=== PATIENT | female | born 1945 | race Caucasian/White ===

== ENCOUNTER → 2017-05-16 | Outpatient (CLI) | payer OTHER, MEDICARE ==
[~2017-05-16] MED LIST: ACTOS 30 MG TAB30 MG PO; ALLEGRA-D 12 H1 EAC1 PO; ALPRAZOLAM 0.50.5 M1 PO; ALPRAZOLAM1 M1 PO; AMBIEN 10 MG TA10 MG PO; ASPIRIN EC81 M1 PO; CHROMIUM PICO400 MCG PO; CO Q-10 100 MG1 EACH PO; CORAL CALCIUM1 EAC2; CRESTOR10 MG PO; FLEXERIL PO; FOLIC ACID 40400 MCG PO; FOLIC ACID0.8 MG PO; HYDROCODON-ACE1 EAC8 PO; LISINOPRIL-HCT1 EAC2 PO; MULTIVITAMINS; OMEGA-3 FISH O1 EAC3 PO; PERCOCET PO; PRAVACHOL40 MG PO; PROBIOTIC1 EAC6 PO; SIMVASTATIN40 MG PO; SINGULAIR 10 MG10 M1 PO; [UNRECOGNIZED DRUG - MIXTURE] TOP
== END ==
LOC: RAD 11:18
DX: M47.896 Other spondylosis, lumbar region (principal); M41.86 Other forms of scoliosis, lumbar region

== ENCOUNTER → 2017-07-28 | Outpatient (CLI) | payer OTHER, MEDICARE ==
[~2017-07-28] VITALS: Ht 160 cm; Wt 114.3 kg
[~2017-07-28] MED LIST changes: +ALENDRONATE SOD70 MG PO; +CHROMIUM400 MCG PO; +CO Q-10100 MG PO; +MAGOX 400400 MG PO; +OXYCODONE-ACET1 EACH PO; +VITAMIN D3400 UNIT PO; +VITAMINC500 PO; +WELLBUTRIN XL300 MG PO
--- NOTE | ~2017-07-28 | HPC ---
[facility] [place] [place] [address] PAIN MANAGEMENT CONSULTATION Name: JERRY PRITCHETT [id number] Admission: 07/28/17 Attend Phys: Indio Zavala MD Discharge: Date of : 49 Report #: [id number] THIS REPORT FOR: //name// CC: Indio Mandel MD DATE OF SERVICE: 07/28/2017 DATE OF REGISTRATION: 07/28/2017 Followup visit for chronic back pain with radiculopathy. I last saw the patient on 12/12/2015 when she received an epidural injection for lumbar radiculopathy. She was better after that injection, but when the pain returned, she was under the understanding she could have no more epidural injections. She discussed this with Dr. Mandel who referred her to Dr. Hough. She said Dr. Hough spent about 8 minutes with her, she was unhappy with the visit. He sent his nurses in to prepare her for spinal cord stimulator. She decided that that was not something she wanted to do. She did go ahead with her psych evaluation, but is here today to see if I can help her once again. Her pain is mostly low back today. She has some mild radiation into the hips that could be in part radicular but it is not severe. She has a chronic scoliosis. She scores her pain as a 5-9/10 depending on her activities, usually worsened by standing and walking, relieved by sitting and lying down. She sleeps on her left side. Recently, she has had a flare up and has not seen much improvement over the course of the last several weeks. MEDICATIONS: Chromium, magnesium, cholecalciferol, ascorbic acid, CoQ10, bupropion, rosuvastatin, alendronate, cyclobenzaprine, montelukast, acidophilus, zolpidem, alprazolam, aspirin, omega 3, multivitamins, and lisinopril. She once took oxycodone and found it to be helpful, but she does not take it on a regular basis. ALLERGIES: None. PQRS MEASURES: She does have osteoarthritis, complaining of pain in several joints including hips and knees. Her BMI is elevated at 44.7. We discussed obesity measures and dieting. I have reviewed all current medications with her and discussed pain medications, particularly her previous use of opioids. Her pain was assessed by our pain score. She is not currently a fall risk, although she does use a walker. She denies uses of tobacco or alcohol. She follows with Dr. Mandel for cardiovascular issues, but is not currently under treatment for hypertension. [address] [address] PAIN MANAGEMENT CONSULTATION Name: SHREYASJERRY ANNALEE Room #: REG DANICA Lemus#: [id number] Admission: 07/28/17 Attend Phys: Indio Zavala MD Discharge: Date of : 47 Report #: [id number] PHYSICAL EXAMINATION: Now, her blood pressure 151/53, heart rate 115, respirations 20, BMI is 44.7. She has pain across her low back and a marked leftward rotational curvature with the apex appearing to be in the lumbar thoracic region. There is tenderness along the spine, particularly along the paravertebral lumbosacral spine. Although the pain radiates into the hips, she does not have classic radiculopathy. IMAGING DATA: MRI reviewed shows multiple changes throughout the lumbar spine. She has spondylosis with significant findings at L3-L4 where there is a grade 1 spondylolisthesis related to advanced facet arthrosis. There is severe bilateral neural foraminal stenosis, right greater than left. Rotational scoliosis is noted. IMPRESSION: Chronic intractable low back pain with history of radiculopathy. She has kyphoscoliosis with rotation and spondylitic changes throughout. RECOMMENDATIONS: 1. We have talked about the importance of remaining active. This is a challenge with the patient's current pain levels. Physical therapy may be of benefit, but at first a simple walking program was discussed. 2. Medication management might be an option for her. The current restrictions on stronger pain medications are noted and discussed with the patient. She might benefit from having a small amount of opioid medication on hand for severe events and also to help with activities such as shopping. She has used oxycodone before in the past and I have agreed to provide that for her. 3. A lumbar epidural injection provided relief for these symptoms in the past. I would agree to provide this for her only on the bases since it provides meaningful relief for a decent duration of action. She is here today hoping that we can provide another injection. PROCEDURE: Lumbar epidural injection L3-L4 under fluoroscopic guidance. She was taken to fluoroscopic suite, placed prone, skin prepped with ChloraPrep. Skin anesthetized over the L3-L4 space. A 20-gauge Tuohy epidural needle advanced in first attempt to the epidural space using loss of resistance. No blood or CSF was aspirated. 1 mL of Omnipaque was injected. Good epidurogram achieved seen cephalad and caudad spread. I then followed this with 3 mL of 1% lidocaine mixed with 40 mg of triamcinolone. I reduced the steroid by 50% due to her history of osteoporosis. She tolerated the procedure well. Pain was reduced markedly in recovery room and she was discharged with a prescription for oxycodone 5/325, #30 for severe pain. [facility] [address] [place] [address] PAIN MANAGEMENT CONSULTATION Name: JERRY PRITCHETT [facility]#: [id number] Admission: 07/28/17 Attend Phys: Indio Zavala MD Discharge: Date of : 47 Report #: [id number] Total time spent with the patient today was about 45 minutes. Followup is needed in the future for further injections. By: [id number] Indio Zavala MD /nt
[2017-07-28 12:21] VITALS: BP 151/53
== END | disposition home or self-care (01) ==
LOC: PAIN 06:48
DX: M54.16 Radiculopathy, lumbar region (principal); M41.86 Other forms of scoliosis, lumbar region; G89.29 Other chronic pain; F17.210 Nicotine dependence, cigarettes, uncomplicated; Z98.890 Other specified postprocedural states; Z79.82 Long term (current) use of aspirin; Z79.899 Other long term (current) drug therapy; Z88.8 Allergy status to other drugs, medicaments and biological substances

== ENCOUNTER → 2017-08-12 | Outpatient (CLI) | payer OTHER, MEDICARE | LOC: ULTRA 09:39 | DX: D25.9 Leiomyoma of uterus, unspecified (principal); N95.0 Postmenopausal bleeding; I12.9 Hypertensive chronic kidney disease with stage 1 through stage 4 chronic kidney disease, or unspecified chronic kidney disease; E11.22 Type 2 diabetes mellitus with diabetic chronic kidney disease; N18.2 Chronic kidney disease, stage 2 (mild) ==

== ENCOUNTER → 2018-01-02 | Outpatient (CLI) | payer OTHER, MEDICARE ==
[~2018-01-02] VITALS: Ht 160 cm; Wt 108.4 kg
--- NOTE | ~2018-01-02 | HPC ---
[facility] [place] [address] PAIN MANAGEMENT CONSULTATION Name: JERRY PRITCHETT Room #: REG [facility].#: [id number] Admission: 01/02/18 Attend Phys: Indio Zavala MD Discharge: Date of : 47 Report #: [id number] THIS REPORT FOR: //name// CC: Indio Mandel MD DATE OF SERVICE: 01/02/2018 DATE OF REGISTRATION: 01/02/2018 Followup visit for low back pain with rotational scoliosis. The patient returns to pain clinic today for followup. She would like an epidural injection and has responded nicely to these injections performed intermittently. Last injection, I performed for her was on 07/28/2017. Pain is now returning. She reports that pain is worse with standing and weightbearing. In addition to radicular pain, which is up in the low back and into the hips, she has axial back pain which is likely spondylitic and muscular. Her limited activity contributes to this. She has done some physical therapy and it was recommended by that she use a supportive brace. By description, she has discussed with him an [place] 631 type brace. This is an excellent lumbosacral support brace that can be fitted to her obese abdomen. Today, she reports pain is an 8/10 standing with walking. Pain occasionally radiates into the legs as well following the dermatomal distribution along the L4-L5. She also has some L3-L4 symptoms. MEDICATIONS: Reviewed and reconciled. She is on no blood thinners. She only very occasionally uses oxycodone 5/325. She was provided with 30 tablets in July and has asked for no further treatment medications. She uses cyclobenzaprine as well daily. No anti-inflammatories are currently utilized. ALLERGIES: Noted to be related to the nonsteroidal medications, which are actually contraindicated due to potential kidney issues with proteinuria. SOCIAL HISTORY: She is tearful today and counseled about the passing of her 1 year ago. They were for over 50 years. She has been limiting her activity since. She continues to smoke half pack a day. She uses alcohol occasionally. She has 2 sons that help with support. She lives in the same home she had with her and is unable to go down in the basement to do laundry where her washing machine is. She has been driving to the [employer]. PHYSICAL EXAMINATION: She is morbidly obese with a BMI noted at 42. She moves from sitting to standing position, walks with antalgic features. She has limited range of motion of the lumbar spine. Blood pressure is 106/62, heart [facility] [address] [place] [address] PAIN MANAGEMENT CONSULTATION Name: JERRY PRITCHETT Room #: REG DANICA Nunez.Lizzy.#: [id number] Admission: 01/02/18 Attend Phys: Indio Zavala MD Discharge: Date of : 47 Report #: [id number] rate 109, respirations 14. Straight leg raising is positive. She has pain with lateral tilt, side to side movements, rotational movements and also forward flexion and extension. Straight leg raising reproduces pain into the hips and also across the low back. IMPRESSION: 1. Chronic low back pain with radiculopathy related to degenerative conditions with scoliosis and spondylitic changes. 2. Management of high risk medication. 3. Situational depression still grieving the passing of her . 4. Morbid obesity. PLAN: 1. Continue physical therapy. 2. I have ordered an [place] 631 brace for her. We will see if we can get that approved by Medicare. 3. Epidural steroid injection under fluoroscopic guidance. DESCRIPTION OF PROCEDURE: She was taken to fluoroscopic suite, placed prone, skin prepped with ChloraPrep over L3-L4. A 20-gauge Tuohy epidural needle advanced first attempt in the epidural space with loss of resistance technique. There was no blood or CSF aspirated. 1 mL of Omnipaque injected. Good spread of dye observed in the epidural space followed by 3 mL of 0.5% lidocaine mixed with 80 mg of triamcinolone. She tolerated the procedure well and was observed for 45 minutes and discharged. Followup visit planned in the pain clinic on an as needed basis for further injections or for medication management in a few months. By: 1400 07 Indio Zavala MD /nt
[2018-01-02 13:14] VITALS: BP 106/62
== END | disposition home or self-care (01) ==
LOC: PAIN 06:56
DX: M41.86 Other forms of scoliosis, lumbar region (principal); G89.29 Other chronic pain; M47.26 Other spondylosis with radiculopathy, lumbar region; E66.01 Morbid (severe) obesity due to excess calories; F32.89 Other specified depressive episodes; Z79.891 Long term (current) use of opiate analgesic; Z68.41 Body mass index [BMI] 40.0-44.9, adult; Z98.890 Other specified postprocedural states; F17.210 Nicotine dependence, cigarettes, uncomplicated; Z88.8 Allergy status to other drugs, medicaments and biological substances; Z79.82 Long term (current) use of aspirin; Z79.899 Other long term (current) drug therapy

== ENCOUNTER → 2018-05-10 | Outpatient (CLI) | payer OTHER, MEDICARE ==
[~2018-05-10] VITALS: Ht 160 cm; Wt 106.5 kg
--- NOTE | ~2018-05-10 | HPC ---
[facility] [place] [address] [place] [address] PAIN MANAGEMENT CONSULTATION Name: JERRY PRITCHETT Room #: REG [facility] MJuan.#: [id number] Admission: 05/10/18 Attend Phys: Indio Zavala MD Discharge: Date of : 47 Report #: [id number] THIS REPORT FOR: //name// CC: Ramiro Mandel MD DATE OF SERVICE: 05/10/2018 Followup visit for chronic low back pain with rotational scoliosis. The patient was last seen in the pain clinic 4 months ago at which time she received an epidural injection. She has always responded reasonably well to epidural injections. This will be her third appointment for an injection in the last 9 months. She reports that pain relief is noted fairly soon after the injection and persists for several months. Other options including a brace, surgeries and medications have been reviewed. She would like to avoid surgery and is not interested in taking opioid medications. Today, she is not nearly as motionless as she was at her last visit. Her 1-1/2 years ago, and she has been limited. She continues to smoke 1/2 pack of cigarettes a day and drink alcohol on a social basis occasionally. PQRS review demonstrates a pleasant female, morbidly obese with a BMI of 41.6. She is on no blood thinners and is not under treatment for hypertension. She does not take opioid medications and is not on an agreement. She is not a fall risk at this time and has not fallen in the last 3 months. Her pain intensity is an 8/10. She smokes 1/2 pack a day and she was counseled today for 5 minutes. Importance of smoking cessation was reviewed. She drinks alcohol occasionally in social setting. Examination of the spine reveals obesity and tenderness across the lumbosacral segment with mild rotational component. Straight leg raise bilaterally produces discomfort into the legs, right worse than left. IMPRESSION: 1. Chronic low back pain with radiculopathy. 2. Morbid obesity. 3. Scoliosis. PROCEDURE: Epidural steroid injection under fluoroscopic guidance. DESCRIPTION OF PROCEDURE: She was taken to fluoroscopic suite where she was placed in prone position. Skin was prepped with ChloraPrep. Skin was anesthetized over L4-L5 interspace. A 20-gauge Tuohy epidural needle advanced [address] [address] PAIN MANAGEMENT CONSULTATION Name: SHREYASJERRY MANTILLA Room #: REG [facility].#: [id number] Admission: 05/10/18 Attend Phys: Indio Zavala MD Discharge: Date of : 47 Report #: [id number] in the epidural space with loss of resistance technique. There was no blood, no CSF aspirated. 1 mL of Omnipaque was injected. Good spread of dye observed in the epidural space followed by 3 mL of 1% lidocaine mixed with 80 mg of triamcinolone. He tolerated the procedure well, was observed for 45 minutes and discharged. Follow up as needed. By: 1749 [id number] Indio Zavala MD /linda
[2018-05-10 13:41] VITALS: BP 129/71
== END | disposition home or self-care (01) ==
LOC: PAIN 06:55
DX: M54.16 Radiculopathy, lumbar region (principal); G89.29 Other chronic pain; M41.9 Scoliosis, unspecified; E66.01 Morbid (severe) obesity due to excess calories; F17.210 Nicotine dependence, cigarettes, uncomplicated; I10 Essential (primary) hypertension; Z68.41 Body mass index [BMI] 40.0-44.9, adult; Z79.899 Other long term (current) drug therapy; Z88.8 Allergy status to other drugs, medicaments and biological substances; Z79.82 Long term (current) use of aspirin

== ENCOUNTER 2018-06-23 12:58 | Emergency (ER) | payer OTHER, MEDICARE ==
[~2018-06-23] VITALS: Ht 160 cm; Wt 106.1 kg
--- NOTE | ~2018-06-23 | EKG ---
[place] [address] [employer] [facility] [place] [address] ELECTROCARDIOGRAM REPORT Name: SHREYASJERRY ANNALEE Room #: [facility] [id number] Admission: 06/23/18 Attend Phys: Discharge: 06/23/18 Date of : 47 Report #: [id number] THIS REPORT FOR: //name// [facility] ED Test Date: 2018-06-23 Test Time: 13:32:07 Pat Name: JERRY PRITCHETT Department: Room: Gender: F Supervisor [employer]: KF : 1945 Requested By: Iron Walker Order Number: [id number] MD: Ameya Heaton Measurements Intervals [place] Rate: 116 P: 68 OR: 173 QRS: -31 QRSD: 89 T: 74 QT: 319 QTc: 444 Interpretive Statements Sinus tachycardia Left axis deviation Low voltage, precordial leads Abnormal R-wave progression consider v2v3 reversal Baseline wander in lead(s) III Compared to ECG 05/16/2014 09:32:15 no significant changes Electronically Signed On 06-25-2018 22:41:28 [employer] by Ameya Heaton [email or web address] <ELECTRONICALLY SIGNED> By: Ameya Heaton MD 06/25/18 2241 1332 1332 Ameya Heaton MD /EPI
[2018-06-23] MEDS ORDERED: PHOSLO667 MG PO (13:51)
[2018-06-23 13:54] LABS: ABSOLUTE NEUTROPHILS 5.5 thou/uL (1.4-8.2); BASOPHILS 1.1 % (0.0-2.0); EOSINOPHILS 2.4 % (0.0-3.0); HEMATOCRIT 37.5 % (37.0-47.0); HEMOGLOBIN 12.7 gm/dL (12.0-15.0); LYMPHOCYTES 19.7 % (24.0-44.0); MCHC 33.8 g/dL (28.0-37.0); MCV 94.7 fL (80.0-100.0); MONOCYTES 9.2 % (1.0-8.0); PLATELET COUNT 392 thou/uL (150-400); POLYS 67.6 % (36.0-66.0); RBC 3.96 mil/uL (4.20-5.00); RDW 13.6 % (10.5-14.5); WBC 8.1 thou/uL (4.0-11.0)
[2018-06-23 14:05] LABS: ANION GAP 11 mmol/L (7-16); BUN 25 mg/dL (7-18); CALCIUM 9.6 mg/dL (8.5-10.1); CHLORIDE 104 mmol/L (98-107); CO2 29 mmol/L (21-32); CREATININE 1.6 mg/dL (0.6-1.0); GLUCOSE 167 mg/dL (74-106); POTASSIUM 4.1 mmol/L (3.5-5.1); SODIUM 144 mmol/L (136-145)
[2018-06-23 14:14] LABS: TROPONIN-I <0.06 ng/mL (<0.06)
[2018-06-23] MEDS ORDERED: XARELTO10 MG PO (15:44)
[2018-06-23 16:07] VITALS: BP 152/58
== END 2018-06-23 16:07 | disposition home or self-care (01) ==
LOC: ER 12:58
PROVIDERS: Physician Assistant
DX: I82.812 Embolism and thrombosis of superficial veins of left lower extremity (principal); I10 Essential (primary) hypertension; E11.9 Type 2 diabetes mellitus without complications; Z88.6 Allergy status to analgesic agent

== ENCOUNTER → 2018-10-23 | Outpatient (CLI) | payer OTHER, MEDICARE ==
[~2018-10-23] VITALS: Ht 160 cm; Wt 112.8 kg
[~2018-10-23] MED LIST changes: +ELIQUIS5 MG PO; +PHOSLO667 MG PO; +XARELTO10 MG PO
[2018-10-23 10:41] VITALS: BP 145/62
--- NOTE | 2018-10-23 11:04 | NUR ---
Pain Clinic Assessment: 1. History of Osteoarthritis: History of Rheumatoid Arthritis: 2. Height: 5 ft. 3 in. 160.0 cm. Weight: 248.6 lb. oz. 112.764 kg. Patient's BMI: 44.0 3. Vital Signs: BP: 145/62 Pulse: 90 Resp: 18 Temp: 02 Sat: 95 ECG Mon: 4. Pain Intensity: 7 5. Fall Risk: Dizziness: N Needs help standing or walking: Y Fallen in the last 3 months: N Fall risk comments: 6. Patient on Blood Thinner: LILLIAN 7. History of Hypertension: N 8. Opioid Therapy greater than 6 weeks: Y Opiate Contract Signed: 10/23/18 9. Risk Assessment Tool Provided: LOW RISK 08/03 10. Functional Assessment Tool: 11. Recreational Drug Use: Never Drug Type: Tobacco Use: Former Smoker Tobacco Type: Amount or Packs/day: How Many Years: Alcohol Use: Yes Frequency: Quant:
--- NOTE | 2018-10-24 07:47 | HPC ---
[facility] [address] [place] [address] PAIN MANAGEMENT CONSULTATION Name: JERRY PRITCHETT [facility]: [facility] [id number] Admission: 10/23/18 ������������������ Attend Phys: Wendy Whitman Discharge: ������������������ Date of : 47 Report #: [id number] THIS REPORT FOR: //name// CC: Wendy Mandel MD DATE OF SERVICE: 10/23/2018 CHIEF COMPLAINT: Chronic low back pain with rotational scoliosis. HISTORY OF PRESENT ILLNESS: This is a followup visit for the patient today who is a very pleasant 73-year-old female who returns requesting a refill of her oxycodone. She tells me that since we saw her last May, she has had a plastic surgery to remove some extra skin from her weight loss of 80 pounds around her abdomen area. She tells me she continued to get several yeast infections due to all this extra skin that was there. She had that removed in June. About a week after the surgery, she developed swelling in her bilateral legs and was found to have 3 superficial blood clots. She was started on Eliquis and has been on that medication since. She tells me she is unable to have any epidurals, why she is on her blood thinners and the last one that she had in May helped her for about 4 months and at least 75%. So, she is requesting some oxycodone to take on as needed basis until she is able to get another injection once she is off her blood thinners. The patient tells me her pain score is a 7/10. Most of her pain is in her lower back area, worse with standing and walking, that medication and rest do help her relieve some of her pain. ALLERGIES: IBUPROFEN. CURRENT LIST OF MEDICATIONS: Oxycodone 5/325 p.r.n., Eliquis 5 mg b.i.d., calcium acetate 667 mg daily, magnesium oxide 400 mg daily, vitamin D3 400 mg daily, ascorbic acid daily, CoQ10 daily, bupropion 300 mg daily, Crestor 10 mg daily, Fosamax 70 mg weekly, Singulair 10 mg daily, probiotic once daily, alprazolam 1 mg 2-3 times a day as needed, multivitamin daily, and lisinopril/hydrochlorothiazide once daily. PQRS: 1. She is not being treated for osteoarthritis or rheumatoid arthritis. 2. Height is 5 feet 3 inches, weight is 248, BMI is 44. 3. Vital signs: Blood pressure 145/62, pulse is 90, respirations 18, oxygen sat is 95%. 4. Pain score 7/10. 5. Fall risk. Denies dizziness. Does use a walker for walking and standing and has not fallen in the last 3 months. 6. The patient is on Eliquis and does take [place] [address] PAIN MANAGEMENT CONSULTATION Name: JERRY PRITCHETT Room #: REG DANICA Lemus#: [id number] Admission: 10/23/18 ������������������ Attend Phys: Wendy Whitman Discharge: ������������������ Date of : 47 Report #: [id number] 7. Opioid therapy is greater than 6 weeks. Therefore, an opiate signed contract has not signed since she takes it very p.r.n. Risk assessment tool is low. Her functional assessment is 39/70. 8. Recreational drug use, she denies. She is a former smoker and occasionally drinks alcohol. We checked the prescription monitoring system. The patient is filling her alprazolam from Dr. Mandel and last narcotic filled from us was in December. The patient tells me she does safeguard her medications. PHYSICAL EXAMINATION: GENERAL: This is a morbidly obese, alert and orientated 73-year-old female, who appears her stated age, who is a good historian. HEENT: Normocephalic, atraumatic. Extraocular eye muscles are intact. Mucous membranes are moist. MUSCULOSKELETAL: She moves from sitting to standing position, walks with antalgic features. She does have limited range of motion in her lumbar spine. She does have scoliosis, complains of low back pain that radiates into her bilateral hips. IMPRESSION: 1. Chronic low back pain with radiculopathy related to her degenerative conditions with scoliosis. 2. Management of high risk medications. 3. Situational depression, still grieving from the passing of her . 4. Morbid obesity. 5. History of blood clots, on anticoagulation therapy. We reviewed the fact that opiate medications are being used to provide analgesia adequate to support activities of daily living, not attempting to achieve a specific pain score on the 0-10 Visual Analog Scale. The current opiate medications are providing sufficient analgesia to allow the patient to participate in activities of daily living. The patient is not exhibiting any aberrant behavior suggestive of drug diversion. The patient is not having any adverse reactions to medications. The patient is not suffering from daytime somnolence or mental acuity changes. The patient is managing opiate-induced constipation with appropriate [id number] agents and dietary considerations. The patient was counseled on concern for caution with operating a motor vehicle while using opiate medications. A physical exam was performed and the patient's functional status was evaluated. All patients with back pain were advised against the bed rest greater than 4 days and were advised to return to normal activities. Pain score assessment was noted and the treatment plan was reviewed with the patient. All current medications, both prescribed and OTC were reviewed and reconciled on the electronic medical record. Tobacco screening was accomplished and smoking cessation was advised when indicated. BMI was noted and diet/exercise modification was recommended for all patients following outside normal [facility] [address] [place] [address] PAIN MANAGEMENT CONSULTATION Name: SHREYASJERRY ANNALEE Room #: REG DANICA Lemus#: [id number] Admission: 10/23/18 ������������������ Attend Phys: Wendy Whitman Discharge: ������������������ Date of : 49 Report #: [id number] parameters. I reviewed with the patient today their responsibilities to safeguard prescription medications, reviewed their responsibility to utilize medications only as prescribed by the physician. They are to seek and receive pain medications only from 1 physician group ( [facility]). They are to use 1 pharmacy and keep the clinic informed if they change pharmacies. Their responsibilities include making followup visits in a timely fashion and to avoid abrupt discontinuation of medication usage. Their responsibilities further include bringing their medications (bottles from the pharmacy with residual pills) to the visit for possible confirmation of pill counts and the patient understands it is their responsibility to submit to random drug screens to ensure both that the medications prescribed are present, and that no other controlled substances are present. All prescriptions provided today were generated electronically. PLAN: 1. We discussed treatment options with the patient today. The patient tells me that since she has developed blood clots in her lower extremities and are currently on a blood thinner, she is unable to have any epidurals which she has found very beneficial in the past giving her at least 75% relief for greater than 4 months, so she is requesting a refill of her oxycodone. Script given today for her oxycodone 5/325, #30. The patient was instructed to use this sparingly and to not take the same medication at the same time as her alprazolam. The patient verbalizes that she will take them at separate times. She feels that most days, she does fine without taking the oxycodone, but since she is unable to have an epidural that she feels that that will help her get through the day when her pain is worse across her lower back. 2. Dr. Zavala did come and visit with the patient. He tells her that she will gladly give her an epidural once Dr. Mandel says that she is able to go off her blood thinners at least even short time for 3-5 days, so she could have another epidural. 3. The patient will call for an appointment as needed. Dr. Zavala collaborated care and saw the patient. ��������������������������������������������� <ELECTRONICALLY SIGNED> ���������������������������������������� By: Wendy Whitman ��������������������������������������������� 10/24/18 0747 1409 Wendy Whitman /linda
== END ==
LOC: PAIN 06:56
DX: M54.16 Radiculopathy, lumbar region (principal); M41.86 Other forms of scoliosis, lumbar region; E66.01 Morbid (severe) obesity due to excess calories; F43.21 Adjustment disorder with depressed mood; Z79.899 Other long term (current) drug therapy; Z79.01 Long term (current) use of anticoagulants; Z86.718 Personal history of other venous thrombosis and embolism; Z68.41 Body mass index [BMI] 40.0-44.9, adult

== ENCOUNTER → 2019-01-18 | Outpatient (CLI) | payer OTHER, MEDICARE ==
[~2019-01-18] VITALS: Ht 160 cm; Wt 107.2 kg
[2019-01-18 13:02] VITALS: BP 138/68
--- NOTE | 2019-01-18 13:27 | NUR ---
Pain Clinic Assessment: 1. History of Osteoarthritis: History of Rheumatoid Arthritis: 2. Height: 5 ft. 3 in. 160.0 cm. Weight: 236.4 lb. oz. 107.231 kg. Patient's BMI: 41.9 3. Vital Signs: BP: 138/68 Pulse: 110 Resp: 22 Temp: 02 Sat: 95 ECG Mon: 4. Pain Intensity: 9 5. Fall Risk: Dizziness: Y Needs help standing or walking: Y Fallen in the last 3 months: N Fall risk comments: 6. Patient on Blood Thinner: None 7. History of Hypertension: N 8. Opioid Therapy greater than 6 weeks: Y Opiate Contract Signed: 10/23/18 9. Risk Assessment Tool Provided: LOW RISK 08/03 10. Functional Assessment Tool: 11. Recreational Drug Use: Never Drug Type: Tobacco Use: Former Smoker Tobacco Type: Amount or Packs/day: How Many Years: Alcohol Use: Yes Frequency: Quant:
--- NOTE | 2019-01-30 17:25 | HPC ---
[facility] [place] [address] PAIN MANAGEMENT CONSULTATION Name: JERRY PRITCHETT Room #: REG DANICA Flores.#: [id number] Admission: 01/18/19 ������������������ Attend Phys: Indio Zavala MD Discharge: ������������������ Date of : 49 Report #: [id number] THIS REPORT FOR: //name// CC: Indio Mandel MD DATE OF SERVICE: 01/18/2019 Followup visit for chronic low back pain with radiculopathy. The patient returns to the pain clinic today in tears. Her second recently . He suddenly in the kitchen. This is the same way her 2 years ago. She was in the clinic today for about an hour. She was given some counseling by my nurse Sona Osorio and I also consoled her a bit as she is grieving acutely. He less than 3 weeks ago. She is here today for her epidural injection. These have provided good relief of her lumbar radicular symptoms. Pain is across her low back and radiates more significantly into the right leg. Medications were reviewed and reconciled. She is on oxycodone 5/325 one tablet q. 12 hours as needed for severe breakthrough pain. I provided these medications for her under terms of a written opioid agreement. We reviewed the [facility] prescription drug monitoring program information. There are no unexpected entries. An opioid agreement has been signed and placed upon the chart. We have completed an opioid risk tool and we feel that she is at low risk for addiction, her score 1 to 3. She denies use of tobacco, does drink alcohol at times in a social setting and was counseled about use of alcohol in the treatment of pain. She feels some unsteadiness on her feet, needs help standing and walking, although she has not fallen in the last three months, I would consider her a fall risk. She is on no blood thinners at this time and she has no history of hypertension. PHYSICAL EXAMINATION: She is 5 feet 3 inches with a BMI of 41.9. Dietary adjustments were reviewed. Blood pressure 138/68, her heart rate 110 and her respirations 22. She has scoliosis of the lumbar spine and tenderness across the lumbosacral segment. Straight leg raising is bilaterally positive, worse on the right. She has abdominal scar from recent plastic surgery procedure for removal of panniculus. IMAGING: X-rays revealed L3-L4 grade 1 spondylolisthesis of 6 mm. There is also thickening of the ligamentum flavum at this level resulting in spinal [address] [address] PAIN MANAGEMENT CONSULTATION Name: JERRY PRITCHETT Room #: REG [facility].#: [id number] Admission: 01/18/19 ������������������ Attend Phys: Indio Zavala MD Discharge: ������������������ Date of : 49 Report #: [id number] stenosis. The leftward convexity scoliosis is present and noted. IMPRESSION: 1. Chronic low back pain with radiculopathy secondary to scoliosis and spinal stenosis. 2. Situational depression. She has lost her second . 3. Morbid obesity. 4. Management of high risk medications under terms of written agreement. PROCEDURE: She was taken to fluoroscopic suite, placed prone, skin prepped with ChloraPrep. Skin anesthetized over the L3-L4 space. A 20-gauge Tuohy epidural needle advanced into the epidural space using loss of resistance technique. There was no blood or CSF aspirated. A 1 mL of Omnipaque injected. Good spread of dye observed into the epidural space followed by 3 mL of 0.5% lidocaine mixed with 80 mg of triamcinolone. She tolerated the procedure well. She was observed for 45 minutes and discharged. Followup visit planned as needed. ��������������������������������������������� <ELECTRONICALLY SIGNED> ���������������������������������������� By: Indio Zavala MD ��������������������������������������������� 01/30/19 1725 [id number] Indio Zavala MD /nt
== END | disposition home or self-care (01) ==
LOC: PAIN 07:00
DX: M54.16 Radiculopathy, lumbar region (principal); G89.29 Other chronic pain; M48.061 Spinal stenosis, lumbar region without neurogenic claudication; F32.89 Other specified depressive episodes; E66.01 Morbid (severe) obesity due to excess calories; M43.16 Spondylolisthesis, lumbar region; M41.86 Other forms of scoliosis, lumbar region; Z68.41 Body mass index [BMI] 40.0-44.9, adult; Z87.891 Personal history of nicotine dependence; Z88.8 Allergy status to other drugs, medicaments and biological substances; Z79.899 Other long term (current) drug therapy

== ENCOUNTER → 2019-04-30 | Outpatient (CLI) | payer OTHER, MEDICARE ==
[~2019-04-30] VITALS: Ht 160 cm; Wt 107.8 kg
[2019-04-30 14:17] VITALS: BP 114/55
--- NOTE | 2019-04-30 14:35 | NUR ---
Pain Clinic Assessment: 1. History of Osteoarthritis: SPINE RIGHT KNEE History of Rheumatoid Arthritis: Not Applicable 2. Height: 5 ft. 3 in. 160.0 cm. Weight: 237.6 lb. oz. 107.775 kg. Patient's BMI: 42.1 3. Vital Signs: BP: 114/55 Pulse: 117 Resp: 14 Temp: 02 Sat: 94 ECG Mon: 4. Pain Intensity: 9-10 5. Fall Risk: Dizziness: Y Needs help standing or walking: Y Fallen in the last 3 months: N Fall risk comments: 6. Patient on Blood Thinner: None 7. History of Hypertension: N 8. Opioid Therapy greater than 6 weeks: Y Opiate Contract Signed: 10/23/18 9. Risk Assessment Tool Provided: LOW RISK 1 10. Functional Assessment Tool: 11. Recreational Drug Use: Never Drug Type: Tobacco Use: Former Smoker Tobacco Type: Amount or Packs/day: How Many Years: Alcohol Use: Yes Frequency: Special Occasions Quant:
--- NOTE | 2019-05-10 16:52 | HPC ---
[facility] [address] [place] [address] PAIN MANAGEMENT CONSULTATION Name: JERRY PRITCHETT Room #: REG DANICA CliffordLizzyJuan#: [id number] Admission: 04/30/19 Attend Phys: Indio Zavala MD Discharge: Date of : 49 Report #: [id number] THIS REPORT FOR: //name// CC: Indio Mandel DATE OF SERVICE: 04/30/2019 Followup visit for chronic intractable low back pain with radiculopathy. The patient returns to the pain clinic today in followup. The last time she was here, she was in tears. She had just lost her fiance who suddenly in the kitchen in front of her. This is the second partner that she has lost within the last 2 years. I must report today that she remains depressed and grieving. She has been very socially isolated, staying in the house most of the time. She does not get out. She goes out about twice a month with her sons who take her to lunch on the weekend and gets to the grocery store, but otherwise seems to be quite lonely. She is seeing as a result of her debility and inactivity increases in the back pain with radiation into her hips and some radiating pain up into her upper back. She describes her pain as a constant throbbing, stabbing sensation, 9/10. Pain is worse with lying down, prolonged standing, prolonged sitting and she frequently repositions in order to get relief. MEDICATIONS: Include oxycodone 5/325 b.i.d. and she is under an opioid agreement. Calcium, magnesium, cholecalciferol, ascorbic acid, CoQ10, Crestor, alendronate, montelukast, alprazolam 1 mg b.i.d., multivitamins, lisinopril/hydrochlorothiazide. She is not on any antidepressant. She previously had taken Wellbutrin. ALLERGIES: IBUPROFEN. PHYSICAL EXAMINATION: She is 5 foot 3 inches, 237 pounds, BMI is 42.1. She has gained a small amount of weight since her last visit. Her affect is depressed. She did not cry today during her visit as she did at her last. She seems to be more pessimistic, however, and discouraged. She ambulates with marked antalgic features. Her chest is clear. Cardiac rhythm is regular. She has tenderness across the lumbosacral segment. Pain radiates into her hips bilaterally with some pain in her right knee, which may either be radicular or arthropathy. She also complains of pain throughout her upper back. This is localized and likely spondylitic. Straight leg raising is mildly positive bilaterally, reproducing pain in the back, hips and legs. Sensation is intact. Generalized weakness of the lower extremities is noted likely due to deconditioning. [facility] [address] [place] [address] PAIN MANAGEMENT CONSULTATION Name: JERRY PRITCHETT [id number] Admission: 04/30/19 Attend Phys: Indio Zavala MD Discharge: Date of : 49 Report #: [id number] IMPRESSION: 1. Low back pain with history of anterolisthesis and radiculopathy. She has marked changes at the L3-L4 level with thickening of the ligamentum flavum resulting in spinal stenosis. There is a leftward scoliosis. 2. Situational depression. 3. Morbid obesity. 4. Management of high risk medications. PLAN: 1. Medications were renewed for intractable pain. 2. Begin Cymbalta 30 mg daily. 3. Physical therapy in part to get her moving, which I think will help with her pain and also to provide her with some social contacts twice a week for the next 6 weeks. 4. Epidural steroid injection, L3-L4 under fluoroscopic guidance. DESCRIPTION OF PROCEDURE: She was taken to the fluoroscopic suite and placed in the prone position. Skin was prepped over the L3-L4 interspace. A 20-gauge Tuohy epidural needle was advanced in the epidural space with loss of resistance technique. There was no blood nor CSF aspirated. A 1 mL of Omnipaque was injected and good spread of dye observed into the epidural space. It was followed by 3 mL of 0.5% lidocaine mixed with 80 mg of triamcinolone. She tolerated the procedure well. She was observed for 45 minutes and discharged. Followup visit planned in 1 month. We will consider additional treatment and I want to check up on her for her depression and response to Cymbalta as well as compliance. <ELECTRONICALLY SIGNED> By: Indio Zavala MD 05/10/19 1652 [id number] Indio Zavala MD /nt
== END | disposition home or self-care (01) ==
LOC: PAIN 06:55
DX: M54.16 Radiculopathy, lumbar region (principal); M48.061 Spinal stenosis, lumbar region without neurogenic claudication; M43.16 Spondylolisthesis, lumbar region; F32.9 Major depressive disorder, single episode, unspecified; E66.01 Morbid (severe) obesity due to excess calories; G89.29 Other chronic pain; Z88.8 Allergy status to other drugs, medicaments and biological substances; Z68.41 Body mass index [BMI] 40.0-44.9, adult; Z79.899 Other long term (current) drug therapy; Z87.891 Personal history of nicotine dependence

== ENCOUNTER → 2019-09-04 | Outpatient (CLI) | payer OTHER, MEDICARE | LOC: HYPER 13:59 | DX: E11.622 Type 2 diabetes mellitus with other skin ulcer (principal); L97.822 Non-pressure chronic ulcer of other part of left lower leg with fat layer exposed; L97.811 Non-pressure chronic ulcer of other part of right lower leg limited to breakdown of skin; L03.115 Cellulitis of right lower limb; L03.116 Cellulitis of left lower limb; E11.65 Type 2 diabetes mellitus with hyperglycemia; E78.5 Hyperlipidemia, unspecified; M54.16 Radiculopathy, lumbar region; G89.29 Other chronic pain; M81.0 Age-related osteoporosis without current pathological fracture; F41.9 Anxiety disorder, unspecified; F32.9 Major depressive disorder, single episode, unspecified; F17.210 Nicotine dependence, cigarettes, uncomplicated; Z79.84 Long term (current) use of oral hypoglycemic drugs ==

== ENCOUNTER → 2019-09-12 | Outpatient (CLI) | payer OTHER, MEDICARE | LOC: HYPER 08:21 | DX: E11.622 Type 2 diabetes mellitus with other skin ulcer (principal); L97.811 Non-pressure chronic ulcer of other part of right lower leg limited to breakdown of skin; L97.822 Non-pressure chronic ulcer of other part of left lower leg with fat layer exposed; L03.116 Cellulitis of left lower limb; L03.115 Cellulitis of right lower limb; E11.65 Type 2 diabetes mellitus with hyperglycemia; E78.5 Hyperlipidemia, unspecified; I10 Essential (primary) hypertension; M81.0 Age-related osteoporosis without current pathological fracture; F17.210 Nicotine dependence, cigarettes, uncomplicated; F41.9 Anxiety disorder, unspecified; F32.9 Major depressive disorder, single episode, unspecified ==

== ENCOUNTER → 2019-09-26 | Outpatient (CLI) | payer OTHER, MEDICARE | LOC: HYPER 12:53 | DX: E11.622 Type 2 diabetes mellitus with other skin ulcer (principal); L97.822 Non-pressure chronic ulcer of other part of left lower leg with fat layer exposed; L97.811 Non-pressure chronic ulcer of other part of right lower leg limited to breakdown of skin; L03.116 Cellulitis of left lower limb; L03.115 Cellulitis of right lower limb; E11.65 Type 2 diabetes mellitus with hyperglycemia; I10 Essential (primary) hypertension; E78.5 Hyperlipidemia, unspecified; M81.0 Age-related osteoporosis without current pathological fracture; F41.9 Anxiety disorder, unspecified; F32.9 Major depressive disorder, single episode, unspecified; F17.210 Nicotine dependence, cigarettes, uncomplicated; Z79.84 Long term (current) use of oral hypoglycemic drugs ==

== ENCOUNTER → 2019-10-10 | Outpatient (CLI) | payer OTHER, MEDICARE | LOC: HYPER 12:54 | DX: E11.622 Type 2 diabetes mellitus with other skin ulcer (principal); L97.822 Non-pressure chronic ulcer of other part of left lower leg with fat layer exposed; L97.811 Non-pressure chronic ulcer of other part of right lower leg limited to breakdown of skin; L03.115 Cellulitis of right lower limb; L03.116 Cellulitis of left lower limb; E11.65 Type 2 diabetes mellitus with hyperglycemia; I10 Essential (primary) hypertension; E78.5 Hyperlipidemia, unspecified; M81.0 Age-related osteoporosis without current pathological fracture; M54.16 Radiculopathy, lumbar region; M54.12 Radiculopathy, cervical region; G89.29 Other chronic pain; F41.9 Anxiety disorder, unspecified; F32.9 Major depressive disorder, single episode, unspecified; F17.210 Nicotine dependence, cigarettes, uncomplicated; Z79.84 Long term (current) use of oral hypoglycemic drugs ==

== ENCOUNTER 2019-10-14 08:09 | Inpatient (IN) | payer OTHER, MEDICARE ==
[~2019-10-14] VITALS: Ht 160 cm; Wt 112.6 kg
[2019-10-14 08:10] VITALS: BP 149/56
[2019-10-14 09:06] LABS: URINE BLOOD 2+ (Negative); URINE CLARITY CLEAR; URINE GLUCOSE-RANDOM* NEGATIVE (Negative); URINE KETONES NEGATIVE (Negative); URINE LEUKOCYTES-REFLEX TRACE (Negative); URINE NITRITE-REFLEX NEGATIVE (Negative); URINE PROTEIN (DIPSTICK) 2+ (Negative); URINE SPECIFIC GRAVITY >= 1.030 (1.005-1.035)
[2019-10-14 09:10] LABS: ICTOTEST (BILI CONFIRMATORY) Negative (Negative); URINE BILIRUBIN NEGATIVE (Negative); URINE COLOR DK YELLOW
[2019-10-14 09:10] LABS: ANION GAP 3 mmol/L (7-16); BUN 24 mg/dL (7-18); CALCIUM 10.2 mg/dL (8.5-10.1); CHLORIDE 97 mmol/L (98-107); CO2 34 mmol/L (21-32); CREATININE 1.4 mg/dL (0.6-1.0); GLUCOSE 145 mg/dL (74-106); POTASSIUM 4.2 mmol/L (3.5-5.1); SODIUM 134 mmol/L (136-145)
[2019-10-14] MEDS ORDERED: PROTONIX40 M2 PO (09:12)
[2019-10-14] MEDS ORDERED: PROAIR HFA8.5 GM INH (09:13)
[2019-10-14] MEDS ORDERED: ALENDRONATE SOD70 MG PO (09:14)
[2019-10-14] MEDS ORDERED: CALCIUM CARBON500 MG PO (09:15)
[2019-10-14 09:16] LABS: HEMATOCRIT 50.1 % (37.0-47.0); HEMOGLOBIN 16.1 gm/dL (12.0-15.0); MCH 30.2 pg (26.0-34.0); MCHC 32.2 g/dL (28.0-37.0); MCV 93.7 fL (80.0-100.0); PLATELET COUNT 156 thou/uL (150-400); RBC 5.34 mil/uL (4.20-5.00); RDW 15.2 % (10.5-14.5); WBC 8.8 thou/uL (4.0-11.0)
[2019-10-14] MEDS ORDERED: MAGNESIUM250 M1 PO (09:16)
[2019-10-14] MEDS ORDERED: SINGULAIR 10 MG10 MG PO (09:16)
[2019-10-14] MEDS ORDERED: CELEXA 20 MG TA20 MG PO (09:18)
[2019-10-14 09:19] LABS: TROPONIN-I <0.06 ng/mL (<0.06)
[2019-10-14] MEDS ORDERED: VITAMIN C1000 MG PO (09:21)
[2019-10-14 09:24] LABS: HYALINE CASTS 0-3 Few /LPF (None Seen); MUCUS >6 Heavy strn/LPF (None Seen); SQUAMOUS >10 Many /LPF (0-3)
[2019-10-14 09:25] LABS: BACTERIA-REFLEX 1-9 Few /HPF (None Seen); CRYSTALS None Seen /LPF (None Seen); URINE RBC 3-10 Few /HPF (0-2); URINE WBC-REFLEX 0-5 Rare /HPF (0-5)
[2019-10-14 10:07] VITALS: BP 129/62
[2019-10-14 10:10] LABS: ATYPICAL LYMPHS 1 %
[2019-10-14 11:54] LABS: BE(vivo) 3.8 mmol/L (-2 to +3); HCO3 30.5 mmol/L (22.0-26.0); PCO2 53.3 mmHg (35.0-45.0); PO2 58.8 mmHg (80.0-100.0); pH 7.375 (7.360-7.450); sO2 89.5 % (92.0-98.0)
[2019-10-14 13:25] VITALS: BP 145/77
[2019-10-14 15:15] VITALS: BP 157/79
--- NOTE | 2019-10-14 18:41 | NUR ---
PT ADMITTED TO FACILTY.ORIENTED TO ROOM AND ENVIRONMENT. SHE IS ALERT ORIENTED X4. DENIES PAIN. ON OXYGEN. STATES SHE HAS HAD COPD FOR MANY YEARS. STATES SHE STILL FEELS WEAK. WILL CONT WITH PLAN OF CARES.
[2019-10-14 20:06] VITALS: BP 123/69
[2019-10-14 23:54] VITALS: BP 122/66
--- NOTE | 2019-10-15 03:50 | NUR ---
Patient making slow progress towards outcome goals. Vital signs and rhythm stable, Still c/o legs feeling weak. High fall risks, fall precautions in place. IVfluids infusing. For MRI lumbar/spine. Checklist completed and faxed to MRI.
[2019-10-15 04:15] VITALS: BP 128/67
[2019-10-15 07:53] VITALS: BP 124/67
[2019-10-15 11:31] VITALS: BP 143/63
--- NOTE | 2019-10-15 13:44 | NUR ---
ASSESSMENT: CM REVIEWED CHART AND MET WITH PATIENT AT THE BEDSIDE. PT IS ALERT AND ORIENTED X4. PT REPORTS THAT SHE LIVES AT HOME ALONE. PT REPORTS HAVING ABOUT 2 STEPS TO ENTER THE HOME WITH A GRAB BAR BY THE GARAGE DOOR SHE WALKS IN. PT STATES SHE AMBULATES INDPENDENTLY. PT IS CURRENTLY ON OXYGEN BUT STATES SHE DOES NOT HAVE IT ARRANGED AT HOME. PT REPORTS SHE HAD HH IN THE PAST YEARS AGO BUT UNSURE THE AGENCY. CM DISCUSSED ROLE. CM DISCUSSED HH AND SNF. PT STATING SHE PREFERS TO HAVE NEITHER AND JUST WANTS TO RETURN HOME. OT SAW PATIENT AND VARIANCED HER TODAY SHE HAS BEEN GETTING UP TO THE COMMODE WITH THE RN. CM WILL CONTINUE TO FOLLOW TO ASSIST NEEDED.
[2019-10-15 15:28] VITALS: BP 144/61
--- NOTE | 2019-10-15 15:28 | EKG ---
[facility] [place] [address] [place] [address] ELECTROCARDIOGRAM REPORT Name: JERRY PRITCHETT Room #: 352-P ADM IN M.R.#: [id number] Admission: 10/14/19 Attend Phys: Ricardo Lamb MD Discharge: Date of : 49 Report #: [id number] THIS REPORT FOR: cc: Curtis Mandel,Ramiro Xiong MD [facility] ~ THIS REPORT FOR: //name// [facility] ED Test Date: 2019-10-14 Test Time: 08:10:50 Pat Name: JERRY PRITCHETT Department: Room: [facility] Gender: F Supervisor [employer]: YANCY : 1945 Requested By: Melchor Lutz Order Number: [id number] MD: Ramiro Delaney Measurements Intervals [place] Rate: 107 P: 49 UT: 184 QRS: -71 QRSD: 89 T: 65 QT: 320 QTc: 427 Interpretive Statements Sinus tachycardia Atrial premature complex Left anterior fascicular block Abnormal R-wave progression, late transition Compared to ECG 06/23/2018 13:32:07 Atrial premature complex(es) now present Left anterior fascicular block now present Electronically Signed On 10-15-2019 15:27:39 CDT by Ramiro Delaney [email or web address] <ELECTRONICALLY SIGNED> By: Ramiro Delaney MD, [facility] 10/15/19 1527 9 Ramiro Delaney MD, [facility] /EPI
--- NOTE | 2019-10-15 18:00 | NUR ---
PATIENT IS ANXIOUS REGARDING NO VISITORS...SON SAW PATIENT THIS CIERA...
[2019-10-15 19:25] VITALS: BP 146/67
--- NOTE | 2019-10-15 22:14 | NUR ---
PT SITTING UP IN BED WATCHING TV AND TALKING. SMILING GOOD EYE CONTACT, NOT SOA WITH CONVERSATION. O2 PER NC. PT CALLS FOR ASSISTANCE TO BSC. LUNGS WHEEZES, NOT OBSERVED COUGHING, HR IRREG, BLE EDEMA +2, GENERALIZED EDEMA OBESITY. IVF INTACT. PT PREQUESTED PRN XANAX PRIOR TO BED. PT DECLINEDS SCDS.
--- NOTE | 2019-10-15 23:47 | NUR ---
PT ON NIGHT OXIMETRY. RT STARTED ON 1L, PT DROPPED TO 88% WHILE SLEEPING THE ALARM AWAKENED HER AND O2 SAT UP TO 94%. RT NOTIFIED PT PLACED ON 2L.
[2019-10-16 03:55] VITALS: BP 144/65
[2019-10-16 07:37] VITALS: BP 143/61
[2019-10-16 11:14] VITALS: BP 130/61
--- NOTE | 2019-10-16 11:43 | NUR ---
ON-GOING ASSESSMENT: CM REVIEWED CHART. 5N HAS BEEN CONSULTED TO SEE PATIENT. PT REMAINS ON OXYGEN. CM WILL AWAIT FURTHER INPUT FROM Gabriela. CM WILL CONTINUE TO FOLLOW TO ASSIST NEEDED.
[2019-10-16 15:14] VITALS: BP 141/57
--- NOTE | 2019-10-16 16:53 | NUR ---
PATIENT SEEN THIS DATE FOR REHAB CONSULT BY MARIA A RBUMFIELD NP WITH DR. AMBROSE. PATIENT IS APPROPRIATE FOR ADMISSION TO 5N, ACUTE REHAB. BED AVAILABLE. ANTICIPATE ADMISSION TO 5N TUESDAY, 10/16. MATH AND SCIENCE INSTRUCTOR INFORMED. THANK YOU FOR THIS REFERRAL.
--- NOTE | 2019-10-16 17:45 | NUR ---
ASSUMED CARE OF PT AT 0700. PT ALERT AND ORIENTED, IN NO ACUTE DISTRESS. UP W/ PHYSICAL THERAPY. SOA W/ ACTIVITY BUT IMPROVING. OTHERWISE VOICING NO COMPLAINTS. GOOD APPETITE. IVF INFUSING PER ORDER. VITALS STABLE. WILL CONT TO MONITOR.
[2019-10-16 19:45] VITALS: BP 137/55
[2019-10-17 04:07] VITALS: BP 139/64
[2019-10-17 07:36] VITALS: BP 149/64
--- NOTE | 2019-10-17 08:29 | NUR ---
Pt progressing towards d/c goals. VSS. Ambulated to with assistance of 1 person with steady gait. Pt is compliant with fall precautions. Bed down in low locked position. Alarm on, Call light in reach. No c/o pain. Medicated for anxiety. Pt slept well. No s/s SOA respiratory distress. Sr on the monitor.
[2019-10-17 11:40] VITALS: BP 135/55
--- NOTE | 2019-10-17 11:46 | NUR ---
on-going assessment: CM REVIEWED CHART AND SPOKE WITH [facility] WHO STATES THEY CAN ACCEPT PT FOR ADMISSION ONCE MEDICALLY STABLE. CM NOTIFIED PT AND ATTENDING. PT IS AGREEABLE WITH PLAN AND REPORTS SHE HAS BEEN TALKING WITH HER SON. PLANS ARE FOR PT TO LIKELY DISCHARGE TO TODAY.
[2019-10-17 15:09] VITALS: BP 144/64
--- NOTE | 2019-10-17 15:15 | NUR ---
on-going assessment: MINDI SPOKE WITH Gabriela HAN WHO STATES THEY CAN ACCEPT PT WHEN MEDICALLY STABLE. PT IS AGREEABLE FOR 5N. Gabriela HAN STATING WE ARE AWAITING THE CONSULT FROM NEUROSURGERY PRIOR TO THEM ACCEPTING PATIENT, ONCE THIS IS COMPLETED AND NO FURTHER TESTING THEY CAN ACCEPT. POSSIBLY LATER TODAY.
--- NOTE | 2019-10-17 15:50 | NUR ---
ASSUMED CARE OF PT AT 0700. PT ALERT AND ORIENTED, IN NO ACUTE DISTRESS. DYSPNEA W/ ACTIVITY. ON 2-3 L NC. DIM/WHZ TO AUSCULTATION. UP W SBA AND WALKER. VOICING NO PARTICULAR CONCERNS. SEEN BY NEUROSURGEON AT BEDSIDE. NO INTERVENTIONS ANTICIPATED. IVF INFUSING PER ORDER. ANTICIPATE D/C TO REHAB LATER TODAY.
[2019-10-17] MEDS ORDERED: ZYRTEC10 M2 PO (16:17)
[2019-10-17] MEDS ORDERED: MUCINEX600 MG PO (16:17)
[2019-10-17] MEDS ORDERED: PULMICORT0.5 MG/22 INH (16:17)
[2019-10-17] MEDS ORDERED: IPRAT-ALBUT 0.5-3 ML INH ×2 (16:17)
[2019-10-17] MEDS ORDERED: PREDNISONE 10 M10 M1 PO (16:19)
[2019-10-17] MEDS ORDERED: VIBRAMYCIN 100100 MG PO (16:19)
== END 2019-10-17 17:40 | DRG 189 ==
LOC: ER 08:09 → 3W 11:36 → EROBS 11:36 → 3W 13:07
PROVIDERS: Emergency Medicine; ADMIT Internal Medicine
DX: J96.21 Acute and chronic respiratory failure with hypoxia (principal); Z68.41 Body mass index [BMI] 40.0-44.9, adult; E66.2 Morbid (severe) obesity with alveolar hypoventilation; M48.061 Spinal stenosis, lumbar region without neurogenic claudication; J96.22 Acute and chronic respiratory failure with hypercapnia; R53.1 Weakness; M54.9 Dorsalgia, unspecified; M41.9 Scoliosis, unspecified; M19.90 Unspecified osteoarthritis, unspecified site; F17.210 Nicotine dependence, cigarettes, uncomplicated; J32.9 Chronic sinusitis, unspecified; G89.4 Chronic pain syndrome; F11.21 Opioid dependence, in remission; F32.9 Major depressive disorder, single episode, unspecified; F41.9 Anxiety disorder, unspecified; E78.5 Hyperlipidemia, unspecified; M81.0 Age-related osteoporosis without current pathological fracture; K21.9 Gastro-esophageal reflux disease without esophagitis; F41.1 Generalized anxiety disorder; M48.00 Spinal stenosis, site unspecified; E66.9 Obesity, unspecified; G47.00 Insomnia, unspecified; E11.22 Type 2 diabetes mellitus with diabetic chronic kidney disease; I12.9 Hypertensive chronic kidney disease with stage 1 through stage 4 chronic kidney disease, or unspecified chronic kidney disease; N18.3 Chronic kidney disease, stage 3 (moderate); J44.9 Chronic obstructive pulmonary disease, unspecified; M54.16 Radiculopathy, lumbar region; Z91.81 History of falling; Z79.899 Other long term (current) drug therapy; Z88.8 Allergy status to other drugs, medicaments and biological substances
CPT/HCPCS: 10879

== ENCOUNTER 2019-10-17 10:53 | Inpatient (IN) | payer OTHER, MEDICARE ==
[~2019-10-17] VITALS: Ht 160 cm; Wt 99.8 kg
--- NOTE | ~2019-10-17 | PLAN ---
[facility] [place] [address] REHAB UNIT PLAN OF CARE Name: JERRY PRITCHETT Room #: 515-P ADM IN M.R.#: [id number] Admission: 10/17/19 Attend Phys: Bg Klein MD Discharge: Date of : 49 Report #: [id number] THIS REPORT FOR: //name// CC: Bg Mandel DATE OF SERVICE: 10/19/2019 PROGRESS NOTE/OVERALL PLAN. SUBJECTIVE: The patient is seen back today in followup. She is in no distress. Last recorded temperature was 36.8, pulse 69, respirations 18, blood pressure 148/71. The patient is alert. She is pleasant. She is working in therapies with transfers, standby assistance, gait standby assistance 150 feet, 4-wheeled walker. In occupational therapy, lower body dressing is setup. Upper body dressing is set up. Her chest sounded clear to auscultation. She needs some encouragement, but is certainly cooperative and working in her therapy program. ASSESSMENT: 1. Lumbar radiculopathy with bilateral lower extremity weakness. 2. Lumbar spinal stenosis. 3. Scoliosis with diffuse severe facet degenerative change. 4. Anterolisthesis with spinal stenosis and bilateral severe foraminal encroachment L3-L4. 5. Left L5-S1 disk protrusion with some mass effect upon the left S1 root. 6. [place] hypercapnic hypoxic respiratory failure. 7. Probable chronic obstructive pulmonary disease. 8. Obesity. 9. Hypertension. PLAN: The overall plan of care is based on the preadmission screen, post-admission physician evaluation, and information garnered from therapy assessments. 1. Estimated length of stay is probably at least 7-10 days. 2. Medical prognosis is reasonably good. 3. Anticipated interventions includes the interdisciplinary acute inpatient rehabilitation program. 4. Anticipated functional outcomes would be for the patient to improve as far as her functional mobility, gait at a walker level, balance, decreased falls, and independence with ADLs. 5. Discharge destination would be back to the home setting where she lives by herself. There are sons that are close by. 6. Expected therapy by discipline includes PT and OT 1 to 1-1/2 [place] [address] REHAB UNIT PLAN OF CARE Name: SHREYASJERRY M Room #: 515-P ADM IN .R.#: [id number] Admission: 10/17/19 Attend Phys: Bg Klein MD Discharge: Date of : 49 Report #: [id number] each 5 days a week throughout the duration of the acute inpatient rehabilitation stay. By: [id number] Bg Klein MD /DON
--- NOTE | ~2019-10-17 | H ---
[facility] [place] [address] HISTORY AND PHYSICAL Name: JERRY PRITCHETT Room #: 515-P ADM IN M.R.#: [id number] Admission: 10/17/19 Attend Phys: Bg Klein MD Discharge: Date of : 49 Report #: [id number] THIS REPORT FOR: cc: Curtis Mandel,Curtis Jung,Bg Hyman MD ~ CC: Bg Mandel DATE OF SERVICE: 10/17/2019 HISTORY AND PHYSICAL AND POST-ADMISSION PHYSICIAN EVALUATION HISTORY OF PRESENT ILLNESS: The patient is a 74-year-old female who originally was admitted to [facility] on 10/14/2019 with bilateral lower extremity weakness, worsening shortness of breath. She was diagnosed with acute respiratory failure, likely undiagnosed chronic obstructive pulmonary disease with acute exacerbation as well as acute on chronic low back pain and bilateral lower extremity weakness. She was placed on IV doxycycline and IV Solu-Medrol, nebulizers and nasal prong O2. She does not typically wear nasal prong O2 at home. She had an MRI of the lumbar spine, which showed spinal stenosis, multiple levels, bulging disk, degenerative arthritis with scoliosis with diffuse severe facet degenerative change. Severe bilateral foraminal encroachment, L3-L4 anterolisthesis with spinal stenosis. She has a left L5-S1 disk protrusion with extension to the left and some mass effect upon the S1 root. She has had prior visits with pain management and intermittent corticosteroid injections. She was seen during her acute hospitalization by Neurosurgery who did not feel that she warranted acute surgical intervention. She has had a significant decline in her functional independence with her lower extremity weakness and multiple medical comorbidities and exacerbations with her respiratory failure. She has now been admitted for acute in-hospital inpatient rehabilitation. PAST MEDICAL HISTORY: Includes lung disease, GERD, hypertension, osteoporosis, scoliosis, chronic back pain. HABITS: Cigarettes, 5-6 cigarettes per day. No history of alcohol or drug usage. ALLERGIES: GENTAMICIN AND IBUPROFEN. SOCIAL HISTORY: Lives at home alone, lost her about 2 years ago. She has a history of falls with the most recent about a month prior to her acute hospitalization. She typically uses a single point cane in the home and a four-wheeled walker for longer distances. She also has a motorized scooter at the grocery store. She has 2 steps in. On no oxygen prior to admission. There [facility] [address] [place] [address] HISTORY AND PHYSICAL Name: JERRY PRITCHETT Room #: 515-P [facility] IN .R.#: [id number] Admission: 10/17/19 Attend Phys: Bg Klein MD Discharge: Date of : 49 Report #: [id number] is a son that is 20 minutes away and another son close by and a sister that is close by as well. The other son is an [id number] class c truck driver. REVIEW OF SYSTEMS: Complains of the lower extremity weakness. Complains of some shortness of breath with increased activity. No chest pain or abdominal discomfort. PHYSICAL EXAMINATION: GENERAL: A 74-year-old pleasant, obese female who was seen later yesterday. She was in no distress. VITAL SIGNS: Temperature 36.2, pulse 71, respirations 20, blood pressure 140/91 on 3 liters. HEENT: Appeared to be benign. NEUROLOGIC: Cranial nerves are grossly intact. Facies are symmetric. She was a good historian. HEENT: Otherwise appeared benign. CHEST: Some decreased breath sounds throughout, otherwise sounded reasonably clear. CARDIOVASCULAR: Regular rate and rhythm. ABDOMEN: Bowel sounds positive, nontender. GENITOURINARY AND RECTAL: Deferred. EXTREMITIES: She has functional range of motion of both upper extremities. Strength is grade 4-/5. DTRs are trace to 1. Lower extremities strength is probably a grade 3+/5 proximal and distal. She may have some weakness of that left ankle as far as plantar flexion. Tone appeared to be intact. Sensory exam is somewhat inconsistent. She is needing assistance with basic functional mobility and ADL skills. Standby assistance is sit to stand. ASSESSMENT: A 74-year-old white female with following problems: 1. Lumbar radiculopathy with bilateral lower extremity weakness. 2. Lumbar spinal stenosis. 3. Scoliosis with diffuse severe facet degenerative change. 4. Anterolisthesis with spinal stenosis and bilateral severe foraminal encroachment at L3-L4. 5. Left L5-S1 disk protrusion with some mass effect upon the left S1 root. 6. Mqlci-ud-jywpobv hypercapnic hypoxic respiratory failure. 7. Probable chronic obstructive pulmonary disease. 8. Obesity. 9. Hypertension. 10. History of falls. 11. Ongoing tobacco abuse. PLAN: The patient has been admitted for acute in-hospital inpatient rehabilitation. From a postadmission physician evaluation perspective, there are no relevant changes since the preadmission screening. Please see the above prior and current medical and functional conditions and comorbidities. Please [address] [address] HISTORY AND PHYSICAL Name: JERRY PRITCHETT Room #: 515-P ADM IN M.R.#: [id number] Admission: 10/17/19 Attend Phys: Bg Klein MD Discharge: Date of : 49 Report #: [id number] see the patient's previous and current functional status. As far as risk of complications, the patient has multiple medical comorbidities as noted above. Initial plan of care involves the interdisciplinary acute inpatient rehabilitation program. Measurable functional goals would be for the patient to become modified independent with transfers, mobility, ADLs, so she can hopefully return back to her prior living situation. Measurable functional goals would be for her to improve her lower extremity strength, improve her balance, prevention of falls, overall endurance, ADL independence, so she can return back to the home setting. Prognosis is reasonably good with estimated length of stay probably at least 7-10 days, but will need to see how she does. She is hoping to go home after 6-7 days. Potential barriers would include her multiple medical comorbidities and decreased functional status. The patient meets diagnostic criteria for an acute in-hospital inpatient rehabilitation stay. She meets the medical necessity criteria and we will have the philatelic consultant physicians continue to follow. She meets the tolerance for therapies and has appropriate discharge goals back to the home setting. By: [id number] Bg Klein MD /[facility]
[~2019-10-17 10:53] MED LIST changes: +CALCIUM CARBON500 MG PO; +CELEXA 20 MG TA20 MG PO; +MAGNESIUM250 M1 PO; +PROAIR HFA8.5 GM INH; +PROTONIX40 M2 PO; +SINGULAIR 10 MG10 MG PO; +VITAMIN C1000 MG PO
[2019-10-17] MEDS ORDERED: PULMICORT0.5 MG/22 INH (16:17)
[2019-10-17] MEDS ORDERED: ZYRTEC10 M2 PO (16:17)
[2019-10-17] MEDS ORDERED: MUCINEX600 MG PO (16:17)
[2019-10-17] MEDS ORDERED: IPRAT-ALBUT 0.5-3 ML INH ×2 (16:17)
[2019-10-17] MEDS ORDERED: VIBRAMYCIN 100100 MG PO (16:19)
[2019-10-17] MEDS ORDERED: PREDNISONE 10 M10 M1 PO (16:19)
--- NOTE | 2019-10-17 19:24 | NUR ---
PT ADMITED FROM 3W TO REHAB AT 1800 FOR LUMBAR RADICULOPATHY WITH BILATERAL LE WEAKNESS. PT ALSO HAS HX OF ACUTE RESPIRATORY FAILURE WITH HYPOXIA, PT SAID SHE SMOKES 5-6 CIGARETTE PER DAYS. DID STOP SMOKING FOR COUPLE YEARS AND PICKED UP SMOKING HABIT WHEN HER 3 YEARS AGO. PT HAS HX OF DEPRESSION, DM WITH DIET CONTROL, FALLS,BLOOD CLOT IN VEIN/ ACUTE RSUPERFICIAL VENOUS THROMBOSIS OF LEFT LOWER EXTREMITIES. REFUSED TO WEAR SCD. PT UP AND WALKS WITH WALKER WITH MIN ASSIST. PT ALERT AND ORIENTED X4 ABLE TO VOICE HER NEEDS. PT LIVES HOME ALONE HAS 2 SUPPORTIVE SONS. REASSESSMENT PER CHART. LUNGS SOUNDS DIMINISHED ON THE BASES AND WHEEZING ON UPPER LOBES. PT IS ON 2-3L OF OXYGEN SAT 95%. BS PRESENT LAST BM WAS THIS AM. NO SKIN ISSUE, EXCEPT DRY SKINS AND OLD SORE CRABBED OVER ON LEFT CALF. NEUROSURGY CAME TO SEE HER PRIOR ADMIT TO 5N FOR SPINE STENOSIS AND SAID SHE IS NOT CANDIDATE FOR SURGERY. HOWEVER, PT DENIES PAIN AT THIS MOMENT. VSS. DISCUSSED ABOUT REHAB SCHEDULE. OT/ST WILL EVALUATE PT IN THE AM. ADMISSION MEDS WENT OVER WITH PT AND FAXED TO PHARMACY. PT READ FALL PRECAUTION AND SIGNED ADMISSION CONSENTS.GAVE REPORT TO NIGHT RN TO CONTINUE TO MONITOR AND COMPLETE ADMISSION. FALL PRECAUTION IN PLACE. CALL LIGHT WITHIN REACH.
[2019-10-17 20:00] VITALS: BP 163/79
--- NOTE | 2019-10-18 00:34 | NUR ---
PT ALERT AND ORIENTED X 4. AMB TO BR WITH WALKER AND ASSIST X 1. SOB WITH EXERTION. 02 ON AT 3L PER NC CONT. PT DENIES PAIN OR DISCOMFORT. BED ALARM ON FOR SAFETY. PT APPEARS TO BE SLEEPING ON HOURLY ROUNDS.
[2019-10-18 05:29] LABS: HEMOGLOBIN 14.8 gm/dL (12.0-15.0); MCH 30.7 pg (26.0-34.0); MCHC 32.3 g/dL (28.0-37.0); RBC 4.84 mil/uL (4.20-5.00); RDW 15.1 % (10.5-14.5); WBC 7.9 thou/uL (4.0-11.0)
[2019-10-18 05:39] LABS: CALCIUM 8.7 mg/dL (8.5-10.1); CREATININE 0.9 mg/dL (0.6-1.0); POTASSIUM 4.8 mmol/L (3.5-5.1)
[2019-10-18 08:00] VITALS: BP 146/71
--- NOTE | 2019-10-18 08:22 | NUR ---
ASSUMED CARE AT 0700. PATIENT IS ALERT AND ORIENTED X4. PATIENT ESPINOSA, MEDIA/INSTRUCTIONAL DESIGNER ARE EQUAL. LUNGS ARE COARSE AND DEMINISHE, WITH EXP WHEEZES. PAITENT REMAINS ON O2 AT 3 L PER N/C. PATIENT CONTINUES ON RESPIRATORY TX. UP ON SIDE OF BED FOR MEALS. FALL AND SAFETY PROTOCOLS IN PLACE. DENIES PAIN AT THIS TIME. WILL CONTINUE TO MONITER.
--- NOTE | 2019-10-18 09:33 | NUR ---
chart review, pt up working with physical therapy. pt is a & o x 3 and able to make her needs know. intro to cm, transition of care and team meetings. noted per chart. yvette lives alone, independent, manage own medication. has cane and 4ww, grab bar in garage with 2 steps to enter the home. had hh in past, not sure who it was with. will cont following as needed for dc needs.
[2019-10-18 20:00] VITALS: BP 156/81
--- NOTE | 2019-10-19 04:00 | NUR ---
ASSUMED CARE AT APPROX 1900 EVENING 10/17. PT SITTING UP IN BED AT CHANGE OF SHIFT ALERT AND ORIENTED X4 SOMEWAHT DEPRESSED AND TEARFUL. PT HAD DISCUSSION WITH PHYSICIAN ZENIA IN DAY AND WAS SAD ABOUT NEWS FOR BACK SURGERY. MUCH EMOTIONAL SUPPORT GIVEN TO PT AND PT GIVEN XANAX PER HER REQUEST. PT SETTLED DOWN AND IN BETTER MOOD NIGHT WENT ON. 02 AT 3L PER N/C. PT UP TO BATHROOM WITH WALKER WITH STANDBY ASSIST. PT NOW BACK TO BED ASLEEP. BED ALARM ON AND CALL LIGHT IN REACH. WILL CONTINUE TO MONITOR.
[2019-10-19 08:00] VITALS: BP 148/71
[2019-10-19 08:05] VITALS: BP 148/71
--- NOTE | 2019-10-19 08:12 | NUR ---
ASSUMED CARE AT 0700. REPORTS SLEPT GOOD LAST NIGHT. VSS ON 3L. SAT 92% PATIENT IS ALERT AND ORIENTED X4. ABLE TO VOICE HER NEEDS. REASSESSMENT PER CHART. SEARCH ANALYST ARE EQUAL. LUNGS ARE COARSE AND DIMINSHED, HAD BREATHING TX THIS AM. NO WHEEZING NOTED AT THIS TIME. ENCOURAGED PT TO DO DEEP BREATH AND WORKING ON IS. PAITENT REMAINS ON O2 AT 3 L PER N/C. PATIENT CONTINUES ON RESPIRATORY TX. HAD 2X BM YESTERDAY. PT LIKES TO GO TO DINNING ROOM FOR MEALS. DISCUSSED ABOUT SOCIAL DISENCOURAGE AT THIS TIME D/T COVID 19. PT UNDERSTANDS AND FEELS MUCH BETTER NOW. MORNING MEDS GIVEN. FALL AND SAFETY PROTOCOLS IN PLACE. DENIES PAIN AT THIS TIME. WILL CONTINUE TO MONITOR.
--- NOTE | 2019-10-19 16:04 | NUR ---
PT ADMITED FROM 3W TO REHAB AT 1500 FOR MEDICAL COMPLEXITY WITH GENERAL DEBILITY R/T SUBMASSIVE BILATERAL PE S/P IVC FILTER ON LAST SATURDAY 10/14. PT ALERT AND ORIENTED X4 ABLE TO VOICE HIS NEEDS. PT LIVES IN APARTMENT BY HIMSELF. HAS 3 DAUGHTERS. PT STATUS IS NO CODE ABLE TO MAKE DECISIONS FOR HIMSELF AT THIS AM. DISCUSSED WITH PT AND AGNIESZKA ABOUT DPOA AND SHE SAID SHE CAN COME ON NEXT TUESDAY TO SIGN PAPERS. REASSESSMENT PER CHART. B/P 198/65 HR 56. PT HAS HX OF HYPERTENSIVE URGENCY ON COUPLE HTN MEDS. ADMISSION MEDS WENT OVER WITH DR. MARIA, DOCTOR AWARES PT'S HIGH B/P. ADMISSION MEDS FAXED TO PHARMACY AND GAVE PRN CLONIDINE 0.2MG AND WILL CONTINUE TO MONITOR. PT DENIES HEADACHE, SOB. PT HAS IVC FILTER REPLACEMENT ON 10/14 ON BELOW RIGHT NECK. DRESSING C/D/I. GAVE BROCHURE ABOUT IVC FILTER FOR PT TO READ AND NOTIFY NURSE IF HE EXPERIENCE WITH ANY SYMPTOMS THAT CAUSE HIS CONCERNS. REPORTS LAST BM WAS 10/15, DENIES CONSTIPATION. NO SKIN ISSUE. DISCUSSED ABOUT REHAB SCHEDULE. OT/PT WILL EVALUATE PT IN THE AM. ADMISSION MEDS WENT OVER WITH PT AND HE HAS NO CONCERN ABOUT THEM AT THIS MOMENT. PT READ FALL PRECAUTION AND SIGNED ADMISSION CONSENTS. FALL PRECAUTION IN PLACE. CALL LIGHT WITHIN REACH.
[2019-10-19 19:40] VITALS: BP 184/85
[2019-10-19 21:00] VITALS: BP 163/87
--- NOTE | 2019-10-20 01:52 | NUR ---
Up to bathroom with minimum assist, walker, and oxygen. Using I.S. while sitting in bed, up to 1000 with effort. Pleasant and monitoring moderately elevated blood sugar and blood pressure. Speaks of committing to smoking cessation.
[2019-10-20 07:55] VITALS: BP 159/69
--- NOTE | 2019-10-20 08:09 | NUR ---
ASSUMED CARE AT 0700. REPORTS SLEPT GOOD LAST NIGHT. C/O LOWER BACK PAIN 02/07 CONCERN THAT MY STEROID INJECTION IS WEARING OUT. OFFERED PRN TYLENOL THIS AM AND WILL CONTINUE TO MONITOR TO SEE IF PT NEEDS MORE PAIN MEDS. SUGGESTED PT TO USE ICE PACK OR HEATIN PACK. B/P WAS HIGH LAST NIGHT. B/P 159/69 THIS AM. SAT 93% ON 4L. PT SAID SHE WAS ON HTN MED BEFORE, AND ANXIETY MED. WILL CALL HER PHARMACY WHEN IT OPENS TODAY. PATIENT IS ALERT AND ORIENTED X4. ABLE TO VOICE HER NEEDS. REASSESSMENT PER CHART. PHYSICIAN OFFICE SPECIALIST ARE EQUAL. LUNGS ARE COARSE HAD BREATHING TX THIS AM. ENCOURAGED PT TO DO DEEP BREATH AND WORKING ON IS. LAST BM WAS LAST EVENING. PT SEEMS DEPRESSION ABOUT HER SITUATIONS. OFFERED SUPPORTIVE CARE AND ENCOURAGEMENT. FALL AND SAFETY PROTOCOLS IN PLACE. SITTING UP IN A CHAIR AND EATING BREAKFAST NOW.WILL CONTINUE TO MONITOR.
--- NOTE | 2019-10-20 08:43 | NUR ---
ASSUMED CARE AT 0700. REPORTS SLEPT ON AND OFF D/T STAFF DOING ROUND HOURLY. PT UP WITH OT AND TOOK SHOWER THIS AM. C/O RIGHT LEG PAIN 6/10, PRN TYLENOL AND VOLTAREN GEL TOPICAL GIVEN. PATIENT IS ALERT AND ORIENTED X4. ABLE TO VOICE HIS NEEDS. REASSESSMENT PER CHART. BS HYPOATIVE. LAST BM WAS 4 DAYS AGO. COLACE SCHEDULE AND PRN MOM GIVENN. WILL CONTINUE TO MONITOR BM. OFFERED SUPPORTIVE CARE AND ENCOURAGEMENT. LABS REVIEWED. B/P 126/54, HR 57. GAVE CARVEDILOL GIVEN BUT HELD OTHER HTN (LISINOPRIL 40MG, HTCZ 25MG, NORVASC 10MG, SPIRONOLACTONE 50MG) AT THIS MOMENT AND WILL CHECK WITH DOCTOR BEFORE GIVEN. FALL AND SAFETY PROTOCOLS IN PLACE. BS 180, 10 UNITS OF LISPRO GIVEN. PT ATE 80% BREAKFAST. HAS NO FUTHER NEEDS OR CONCERNS AT THIS MOMENT. SITTING IN WC WATCHING TV. CALL LIGHT WITHIN REACH. PHYSICAL THERAPIST WILL WORK WITH PT AT 0900. WILL CONTINUE TO MONITOR.
[2019-10-20] MEDS ORDERED: LISINOPRIL-HCT1 EAC2 PO (10:45)
[2019-10-20] MEDS ORDERED: OXYCODONE-ACET1 EACH PO (10:46)
[2019-10-20] MEDS ORDERED: CELEXA 20 MG TA20 MG PO (12:50)
[2019-10-20] MEDS ORDERED: GLIPIZIDE 10 MG10 MG PO (12:59)
[2019-10-20 19:21] VITALS: BP 137/63
--- NOTE | 2019-10-21 01:51 | NUR ---
Calls for standby assist up to toilet to void. Pleasant, still requiring oxygen. Blood sugar = 103 at hs. Home med Celexa restarted at hs, asked to evaluate whether it keeps her awake since she typically takes it in the morning when she is at home.
[2019-10-21 05:40] LABS: HEMOGLOBIN 15.1 gm/dL (12.0-15.0); MCH 30.4 pg (26.0-34.0); MCHC 32.8 g/dL (28.0-37.0); MCV 92.5 fL (80.0-100.0); RBC 4.97 mil/uL (4.20-5.00); RDW 15.1 % (10.5-14.5); WBC 9.7 thou/uL (4.0-11.0)
[2019-10-21 05:50] LABS: CALCIUM 9.5 mg/dL (8.5-10.1); MAGNESIUM 1.7 mg/dL (1.8-2.4); POTASSIUM 4.2 mmol/L (3.5-5.1)
[2019-10-21 07:21] VITALS: BP 154/77
--- NOTE | 2019-10-21 10:45 | NUR ---
Assumed care at 0700. 0728 ME=300; QL=874/77, p=78, R=20, O2 Sat=93% with N/C on 3.5 L. Has Lumbar radiculpathy with bilat. LE weakness, Scoliosis, spinal Stenosis, Chronic Pain syndrome-Opiate Dependent.She is on a Prednisone taper currently at 30 mg. She is on an antibiotic-Vibramycin, uses incentive spirometry. Patient alternates sitting on the side of the bed with sitting in the bedside chair. Lungs have slight wheezing. Heart AP is regular at 78BPM. Abdomen: + bowel sounds, soft/tender. Last BM was 10/19/19. Right foot bright pink with 2+ foot/ankle edema. Left foot with 1+ pitting edema. She says she usually has more swelling on the left foot/ankle not the right. Affect is bright, light hearted, mood is cheerful, upbeat. She is compliant with medications and Heart Healthy diet, and calling for help when she wants to get up to the bathroom. Fall precautions of yellow light, yellow band. She declined help with sponge bath. Is not using YUE HOSE. She is up with yellow gait belt, walker and the assist of one person.
[2019-10-21 19:35] VITALS: BP 130/56
--- NOTE | 2019-10-22 00:21 | NUR ---
PT ALERT AND ORIENTED X 4. AMB TO BR WITH WALKER AND ASSIST X 1 WITHOUT DIFFICULTY. 02 ON AT 4L PER NC CONT. SOME SOB WITH EXERTION. LUNGS WITH WHEEZES. PT DENIES PAIN OR DISCOMFORT. LIDOCAINE PATCH TO LOWER BACK ORDERED. BED ALARM ON FOR SAFETY. PT APPEARS TO BE SLEEPING ON HOURLY ROUNDS.
[2019-10-22 07:15] VITALS: BP 150/48
[2019-10-22 08:51] VITALS: BP 150/48
--- NOTE | 2019-10-22 08:58 | NUR ---
ASSUMED CARE AT 0700. REPORTS SLEPT GOOD LAST NIGHT. PATIENT IS ALERT AND ORIENTED X4. ABLE TO VOICE HER NEEDS. REASSESSMENT PER CHART. JACK MACHINE OPERATOR ARE EQUAL. LUNGS ARE COARSE HAD BREATHING TX THIS AM. ENCOURAGED PT TO DO DEEP BREATH AND WORKING ON IS. LAST BM WAS 3 DAYS AGO. OFFER LAXATIVES. SHE REFUSES, BUT WILL TAKE PRUNE JUICE. B/P 150/48 PT CONCERNS ON HER SYSTOLIC B/P. HTN GIVEN WILL CONTINUE TO MONITOR. RATES BACK PAIN 5/10, DENIES NEED FOR PAIN MEDS AT THIS MOMENT. BUT WILL ASK WHEN SHE NEEDS. PT REQUESTS FOR PRN ANXIETY MED. XANAX AND MORNING MEDS GIVEN. OFFERED SUPPORTIVE CARE AND ENCOURAGEMENT. FALL AND SAFETY PROTOCOLS IN PLACE. SITTING AT THE EDGE OF THE BED EATING BREAKFAST NOW. HAS 1+ EDEMA ON HER ANKLE, REFUSES TO WEAR TEDHOSE. ENCOURAGED PT TO ELEVATE FEET MUCH SHE CAN. UP TO BATHROOM WITH ASSIST. BS 136 THIS AM. CHECK FREQUENTLY FOR NEED AND SAFETY. HER GOALS TO CONTINUE WITH THERAPY. PT IS IN GOOD SPIRIT, SMILING AND SATISFY WITH THE CARE SHE HAS RECEIVE FROM [facility]. WILL CONTINUE TO MONITOR.
--- NOTE | 2019-10-22 10:30 | NUR ---
received phone call from bedside nurse passing on that pt still on o2 and might need home oxygen.
[2019-10-22 19:55] VITALS: BP 112/49
--- NOTE | 2019-10-22 23:22 | NUR ---
PT CARE ASSUMED WITH PT SITTING AT BED.PT IS A/O X4.PT IS UP WITH SBA.PT APPEARED TO BE IN NO ACUTE DISTRESS.PT IS ON 4L OF O2 AND BREATHING TREATMENT.WILL CONTINUE TO MONITOR PER POC
--- NOTE | 2019-10-23 04:25 | NUR ---
ASSUMED AT 0115 FROM A A DIFFERENT NURSE. PT ASSESSED PT IS A&0X4. WAS RESTING IN BED ASSESSMENTS ARE CHARTED. BLE EDEMA NOTED, MORE DEPENDED ON THE RIGHT LEG THAN THE LEFT. PT APPEARS STABLE AT THIS TIME. NO COMPLAINTS OF PAIN OR DISCOMFORT. WILL CONTINUE TO MONITOR PER POC
[2019-10-23 08:00] VITALS: BP 119/93
--- NOTE | 2019-10-23 11:15 | NUR ---
ASSUMED CARE AT 0700. REPORTS SLEPT GOOD LAST NIGHT. PATIENT IS ALERT AND ORIENTED X4. ABLE TO VOICE HER NEEDS. REASSESSMENT PER CHART. REPORTS HAD SMALL BM LAST NIGHT. OFFERED PRUNE JUICE THIS AM. B/P 119/93, HELD LISINOPRIL THIS AM PER PARAMETER. RATES BACK PAIN 5/10, DENIES NEED FOR PAIN MEDS AT THIS MOMENT. BUT WILL ASK WHEN SHE NEEDS. PT REQUESTS FOR PRN ANXIETY MED. XANAX AND MORNING MEDS GIVEN. OFFERED SUPPORTIVE CARE AND ENCOURAGEMENT. RATED PAIN ON LOWER BACK 8/10, GAVE PRN OXYCODONE BEFORE PHYSICAL THERAPY. FALL AND SAFETY PROTOCOLS IN PLACE. CHECK FREQUENTLY FOR NEED AND SAFETY. HER GOALS TO CONTINUE WITH THERAPY AND WORKING ON BREATHING. SAT 94% ON 3.5L AT THIS MOMENT. PT IS IN GOOD SPIRIT. WORKING WITH THERAPIST AT THIS MOMENT. WILL CONTINUE TO MONITOR.
--- NOTE | 2019-10-23 12:55 | NUR ---
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 will cont following as needed for dc needs.
[2019-10-23 19:05] VITALS: BP 141/70
--- NOTE | 2019-10-24 02:51 | NUR ---
Doing well with modified independent status with oxygen in room, and is getting up alone. Currently on overnight desaturation study, with plans to go home on 3 liters today. Lidocaine patch to low back at hs is helpful for pain
[2019-10-24 07:30] VITALS: BP 137/66
[2019-10-24 08:52] VITALS: BP 141/70
--- NOTE | 2019-10-24 09:02 | NUR ---
FAXED REFERRAL TO [facility] SPOKE WITH INTAKE AND THEY CAN ACCEPT PT TO DC TODAY.
[2019-10-24] MEDS ORDERED: HYDROCHLOROTH12.5 M1 PO (09:53)
[2019-10-24] MEDS ORDERED: ASPIRIN81 M2 PO (09:53)
[2019-10-24] MEDS ORDERED: MUCINEX600 MG PO (09:53)
[2019-10-24] MEDS ORDERED: NEBULIZER MISCELL (10:02)
[2019-10-24] MEDS ORDERED: OXYGEN (10:05)
[2019-10-24] MEDS ORDERED: IPRAT-ALBUT 0.5-3 ML INH ×2 (10:08→11:05)
[2019-10-24] MEDS ORDERED: PULMICORT0.5 MG/22 INH ×2 (10:08→11:05)
[2019-10-24] MEDS ORDERED: PREDNISONE 10 M10 M1 PO (11:05)
[2019-10-24] MEDS ORDERED: OXYCODONE-ACET1 EACH PO (11:17)
--- NOTE | 2019-10-24 11:26 | NUR ---
FAXED REFERRAL/SCRIPTS TO [facility] FOR HOME O2 AND NEBULIZER SPOKE WITH EZE IN INTAKE THEY RECEIVED REFERRAL AND WILL DELIVER O2 PRIOR TO DC AND DELIVER NEBULIZER TO PT'S HOME.
[2019-10-24 12:00] VITALS: BP 141/70
--- NOTE | 2019-10-24 12:04 | NUR ---
PATIENT GIVEN D/C INSTRUCTIONS. [facility] DELIVERED 02, AND NEBULIZER MACHINE. PATIENT LEFT UNIT IN GOOD CONDITION WITH ALL OF HER BELONGINGS AND ACCOMPANIED BY SON.
--- NOTE | 2019-10-24 14:21 | NUR ---
PATIENT D/C'D TO MEDICAL MALL ENTRANCE. PATIENT WAS ABLE TO TRANSFER FROM THE W/C TO HER CAR WITH MINIMAL ASSISTANCE FROM STAFF. PATIENT WAS ABLE TO BUCKLE HER SEAT BELT AND PATIENT LEFT WITH HER SON.
--- NOTE | 2019-10-24 15:51 | NUR ---
ASSUMED CARE AT 0700. PATIENT IS ALERT AND ORIENTED X4. PATIENT ESPINOSA'S, SIDE HEMMER ARE EQUAL. LUNGS ARE COARSE AND DEMINISHED. PATIENT REMAINS ON 02 AT 3L PER N/C. PATIENT COMPLETED RESPIRATORY OXIMETRY AND WILL GO HOME TODAY ON 02 AT 2-3L. PATIENT WILL F/U [facility] DR. DIAZ IN 1 MONTH. ABD IS SOFT WITH BSX4. PATIENT IS UP WITH GAIT BELT TO THE BATHROOM. PATIENT IS MOD/I IN ROOM. PATIENT IS VOIDING ANNE MARIE COLORED URINE. UP ON SIDE OF BED FOR MEALS. FALL AND SAFETY PROTOCOLS IN PLACE. C/O PAIN IN HER BACK. MEDICATED WITH PRN MED. PATIENT CONTINUES TO PROGRESS TOWARDS D/C GOALS. WILL CONTINUE TO MONITER. PLAN D/C LATER TODAY TO HOME WITH HH, AND P.T. FROM [facility].
[2019-10-26] MEDS ORDERED: PULMICORT0.5 MG/22 INH (11:51)
== END 2019-10-24 14:24 | disposition home health service (06) | DRG 551 ==
LOC: ENTRNSPT 10-24 14:03
PROVIDERS: Internal Medicine; ADMIT Physical Medicine & Rehabilitation
DX: M51.17 Intervertebral disc disorders with radiculopathy, lumbosacral region (principal); J96.21 Acute and chronic respiratory failure with hypoxia; J96.22 Acute and chronic respiratory failure with hypercapnia; N17.9 Acute kidney failure, unspecified; J98.11 Atelectasis; M48.061 Spinal stenosis, lumbar region without neurogenic claudication; M41.9 Scoliosis, unspecified; K21.9 Gastro-esophageal reflux disease without esophagitis; M81.0 Age-related osteoporosis without current pathological fracture; G89.29 Other chronic pain; F17.210 Nicotine dependence, cigarettes, uncomplicated; Z60.2 Problems related to living alone; E78.5 Hyperlipidemia, unspecified; M47.9 Spondylosis, unspecified; E11.22 Type 2 diabetes mellitus with diabetic chronic kidney disease; I12.9 Hypertensive chronic kidney disease with stage 1 through stage 4 chronic kidney disease, or unspecified chronic kidney disease; N18.9 Chronic kidney disease, unspecified; E66.01 Morbid (severe) obesity due to excess calories; F41.1 Generalized anxiety disorder; G31.84 Mild cognitive impairment of uncertain or unknown etiology; E83.42 Hypomagnesemia; F41.8 Other specified anxiety disorders; Z79.891 Long term (current) use of opiate analgesic; Z68.39 Body mass index [BMI] 39.0-39.9, adult; Z88.8 Allergy status to other drugs, medicaments and biological substances; Z91.81 History of falling
CPT/HCPCS: 10112

== ENCOUNTER → 2019-11-20 | Outpatient (CLI) | payer OTHER, MEDICARE ==
[~2019-11-20] MED LIST changes: +ASPIRIN81 M2 PO; +GLIPIZIDE 10 MG10 MG PO; +HYDROCHLOROTH12.5 M1 PO; +IPRAT-ALBUT 0.5-3 ML INH; +MUCINEX600 MG PO; +NEBULIZER MISCELL; +OXYGEN; +PREDNISONE 10 M10 M1 PO; +PULMICORT0.5 MG/22 INH; +VIBRAMYCIN 100100 MG PO; +ZYRTEC10 M2 PO
== END ==
LOC: SJCVC 12:57
DX: R94.31 Abnormal electrocardiogram [ECG] [EKG] (principal); I44.7 Left bundle-branch block, unspecified; R00.0 Tachycardia, unspecified; I10 Essential (primary) hypertension; J96.11 Chronic respiratory failure with hypoxia; E78.5 Hyperlipidemia, unspecified; E11.9 Type 2 diabetes mellitus without complications; J44.9 Chronic obstructive pulmonary disease, unspecified; M48.061 Spinal stenosis, lumbar region without neurogenic claudication; I82.413 Acute embolism and thrombosis of femoral vein, bilateral

== ENCOUNTER → 2019-11-29 | Outpatient (CLI) | payer OTHER, MEDICARE ==
[~2019-11-29] VITALS: Ht 160 cm; Wt 108.2 kg
[~2019-11-29] MED LIST changes: +LISINOPRIL-HCT1 EACH PO
--- NOTE | ~2019-11-29 | HPC ---
[facility] [place] [address] PAIN MANAGEMENT CONSULTATION Name: JERRY PRITCHETT Room #: REG [facility].#: [id number] Admission: 11/29/19 Attend Phys: Indio Zavala MD Discharge: Date of : 49 Report #: [id number] THIS REPORT FOR: cc: Curtis Mandel,Indio Gonzalez MD ~ CC: Bg Mandel DATE OF SERVICE: 11/29/2019 Followup visit for chronic intractable low back pain with scoliosis and severe spinal stenosis, L3-L4. Lumbar radiculopathy. Consultation for medication management. Time of consultation 15 minutes from 9:30 to 9:45. The patient is here today in the pain clinic to discuss another epidural injection. She receives epidural injections periodically for severe pain that radiates from her back down into her hips. She has been suffering from increased pain. The pain is in her back and radiates into her legs. This has limited her activity dramatically. She is carefully isolating and staying home yet simple day-to-day activities are now more challenging. She spent 10 days in the hospital in September. She had numbness in her legs. From 10/14/2019 to 10/24/2019, she was here and received therapy on the fifth floor in rehab and also saw Neurosurgery for consultation. Dr. Delaney also evaluated her for cardiac issues. CT scan of the lumbar spine and an MRI of the lumbar spine without contrast were obtained during her hospitalization and reviewed. She has significant stenosis, spondylolisthesis, degenerative facet spondylosis focal at L3-L4 as well as degenerative changes in other areas of her lumbar spine. Her last epidural was performed in April. She reports significant improvement following that injection. We have discussed the importance of remaining active. Weight loss was discussed. She is morbidly obese. PQRS review completed today is positive for osteoarthritis of the spine in her right knee. Her BMI is 42.3. Relationship of weight and chronic back pain was discussed with some strategies. Blood pressure is 139/59, heart rate 87, respirations 20, O2 sat 95. Pain sitting 4/10, pain standing 8-10. She needs [facility] [address] [place] [address] PAIN MANAGEMENT CONSULTATION Name: JERRY PRITCHETT Room #: [facility]#: [id number] Admission: 11/29/19 Attend Phys: Indio Zavala MD Discharge: Date of : 49 Report #: [id number] help standing or walking and has fallen within the last 3 months. She denies use of blood thinners, but is treated for hypertension. All medications were reviewed and reconciled today during her visit and are on the electronic medical record. She has an opioid agreement on her chart, but uses it very infrequently. I provided her with a prescription for oxycodone 5/325 in January of last year and she received 21 tablets at discharge from the hospital on 10/25/2019 of oxycodone 5/[address] John. She is out of those medicines. I reviewed her prescription drug monitoring information. There are no unexpected entries. We reviewed her agreement and importance of safeguarding these medications and taking them as ordered. She is also on a benzodiazepine and has shown that she can take both of them in small doses cautiously without interaction. I have agreed to provide her with a prescription for oxycodone 5/325, 45 tablets. She denies use of tobacco, drinks alcohol occasionally in social setting. PHYSICAL EXAMINATION: VITAL SIGNS: As noted. GENERAL: She moves independently from sitting to standing position. Her gait is markedly antalgic. CHEST: Clear. CARDIAC: Rhythm regular. MUSCULOSKELETAL: Spine is tender across the lumbosacral segment. She has pain with forward flexion and extension, bilateral straight leg raising discomfort radiating into the hips, but no further. Sensation and strength are normal. Deep tendon reflexes absent in knees and ankles. IMPRESSION: Chronic low back pain secondary to significant degenerative disease, spondylolisthesis, spinal stenosis, spondylosis and radiculopathy. RECOMMENDATIONS: 1. L3-L4 epidural injection under fluoroscopic guidance. 2. Electronically prescribed oxycodone 5/325 to her pharmacy [facility]. PROCEDURE NOTE: After both written and informed consent to include risk of spinal cord damage, increased pain, weakness and dural puncture, the patient was taken to the fluoroscopy suite, placed in the prone position. After sterile prep and drape, a skin wheal with lidocaine was raised. A 22-gauge epidural Tuohy needle was inserted in the midline at L3-L4 with good loss to resistance. Negative aspiration for cerebrospinal fluid or blood was noted. Then 1 mL of Omnipaque under biplanar fluoroscopy showed good spread within the epidural space. This was followed with 80 mg of triamcinolone plus 3 mL of 0.5% lidocaine was then injected to flush the needle; it was removed. [facility] [address] [place] [address] PAIN MANAGEMENT CONSULTATION Name: JERRY PRITCHETT Room #: REG [facility]#: [id number] Admission: 11/29/19 Attend Phys: Indio Zavala MD Discharge: Date of : 49 Report #: [id number] She tolerated the procedure well and was observed for 45 minutes and discharged. Followup as needed. By: [id number] Indio Zavala MD /nt
[2019-11-29 09:31] VITALS: BP 39/59
--- NOTE | 2019-11-29 09:48 | NUR ---
Pain Clinic Assessment: 1. History of Osteoarthritis: SPINE RIGHT KNEE History of Rheumatoid Arthritis: Not Applicable 2. Height: 5 ft. 3 in. 160.0 cm. Weight: 238.6 lb. oz. 108.228 kg. Patient's BMI: 42.3 3. Vital Signs: BP: 39/59 Pulse: 87 Resp: 20 Temp: 02 Sat: 95 ECG Mon: 4. Pain Intensity: 4/SITTING 8-9/STAND 5. Fall Risk: Dizziness: N Needs help standing or walking: Y Fallen in the last 3 months: N Fall risk comments: 6. Patient on Blood Thinner: None 7. History of Hypertension: Y 8. Opioid Therapy greater than 6 weeks: Y Opiate Contract Signed: 10/23/18 9. Risk Assessment Tool Provided: LOW RISK 1 10. Functional Assessment Tool: 11. Recreational Drug Use: Never Drug Type: Tobacco Use: Former Smoker Tobacco Type: Cigarettes Amount or Packs/day: How Many Years: Alcohol Use: Yes Frequency: Special Occasions Quant: 1-2
--- NOTE | 2019-11-29 10:33 | NUR ---
11/29/2019-medication reconciled/patient stated to the best of her knowledge/no medication list provided/requested she bring one to her next visit/pharmacy confirmed with patient as well. tara
== END | disposition home or self-care (01) ==
LOC: PAIN 07:12
DX: M51.16 Intervertebral disc disorders with radiculopathy, lumbar region (principal); M48.061 Spinal stenosis, lumbar region without neurogenic claudication; M43.16 Spondylolisthesis, lumbar region; M47.26 Other spondylosis with radiculopathy, lumbar region; G89.29 Other chronic pain; I10 Essential (primary) hypertension; E66.01 Morbid (severe) obesity due to excess calories; Z98.890 Other specified postprocedural states; Z79.899 Other long term (current) drug therapy; Z87.891 Personal history of nicotine dependence; Z88.8 Allergy status to other drugs, medicaments and biological substances; Z68.41 Body mass index [BMI] 40.0-44.9, adult

== ENCOUNTER → 2020-07-11 | Outpatient (CLI) | payer OTHER, MEDICARE | LOC: SJCVC 13:14 | PROVIDERS: ATTEND Internal Medicine | DX: R94.31 Abnormal electrocardiogram [ECG] [EKG] (principal); I44.4 Left anterior fascicular block; I10 Essential (primary) hypertension; J96.11 Chronic respiratory failure with hypoxia; E78.5 Hyperlipidemia, unspecified; E11.9 Type 2 diabetes mellitus without complications; J44.9 Chronic obstructive pulmonary disease, unspecified; M48.061 Spinal stenosis, lumbar region without neurogenic claudication; I82.413 Acute embolism and thrombosis of femoral vein, bilateral ==

== ENCOUNTER → 2020-09-18 | Outpatient (CLI) | payer OTHER, MEDICARE | LOC: CAT 09-11 11:19 | PROVIDERS: ATTEND Neuromusculoskeletal Medicine & OMM | DX: K57.30 Diverticulosis of large intestine without perforation or abscess without bleeding (principal); K76.0 Fatty (change of) liver, not elsewhere classified; K42.9 Umbilical hernia without obstruction or gangrene; M47.819 Spondylosis without myelopathy or radiculopathy, site unspecified; M48.061 Spinal stenosis, lumbar region without neurogenic claudication; M54.2 Cervicalgia; R22.1 Localized swelling, mass and lump, neck ==

== ENCOUNTER → 2020-10-06 | Outpatient (CLI) | payer OTHER, MEDICARE ==
[~2020-10-06] MED LIST changes: +ASA81BEC PO; +CO-ENZYME Q-1010 MG PO; +GUAIFENESIN400 MG PO; +MULTI VITAMIN1 EACH PO; +OXYCODONE-APAP1 EAC4 PO; +PROBIOTIC1 EAC7 PO; +ROSUVASTATIN CA20 MG PO; +TURMERIC500 M2 PO; +VENTOLIN HFA INH8 GM INH; +VITAMIN B-121000 MC2 SUBLING
== END ==
LOC: LAB 13:49
PROVIDERS: ATTEND Surgery
DX: Z01.812 Encounter for preprocedural laboratory examination (principal); Z20.822 Contact with and (suspected) exposure to COVID-19

== ENCOUNTER → 2020-10-06 | Outpatient (CLI) | payer OTHER, MEDICARE | LOC: RAD 10:39 | PROVIDERS: ATTEND Surgery | DX: K80.20 Calculus of gallbladder without cholecystitis without obstruction (principal); E04.1 Nontoxic single thyroid nodule; R06.02 Shortness of breath; R19.8 Other specified symptoms and signs involving the digestive system and abdomen; J98.11 Atelectasis; I51.7 Cardiomegaly ==

== ENCOUNTER 2020-10-09 09:14 | Observation (INO) | payer OTHER, MEDICARE ==
[~2020-10-09] VITALS: Ht 160 cm; Wt 104.3 kg
--- NOTE | ~2020-10-09 | O ---
[facility] [place] [address] [place] [address] OPERATIVE REPORT Name: JERRY PRITCHETT Room #: 437-P [facility].#: [id number] Admission: 10/09/20 Attend Phys: Robert Brunner MD Discharge: Date of : 49 Report #: [id number] THIS REPORT FOR: cc: Curtis Mandel Steven F. DO Chu, Peter Y. MD ~ DATE OF SERVICE: 10/09/2020 PREOPERATIVE DIAGNOSIS: Chronic cholecystitis with cholelithiasis. POSTOPERATIVE DIAGNOSIS: Chronic cholecystitis with cholelithiasis. PROCEDURES PERFORMED: Laparoscopic cholecystectomy with cholangiogram. SURGEON: Robert Brunner MD COMPLICATIONS: None. ESTIMATED BLOOD LOSS: 10 mL. FINDINGS: The gallbladder did have adhesion around it and also just moderately distended. Common bile duct is normal on operative cholangiogram. Two small stones identified in the gallbladder. DESCRIPTION OF PROCEDURE: With the patient under general anesthesia, IV antibiotic was administered. Abdomen was prepped and draped in sterile fashion. Timeout was performed. The patient had an umbilical hernia many years ago. I decided to go above the umbilicus to avoid that area. Incision was made about 2-3 inches above the umbilicus. This incision is about 2.5 cm. After incising through the skin, fascia was identified. Fascia was grasped with hemostat. Fascia was then opened between clamps. The fascia was controlled with 0 Vicryl sutures. With the sutures lifted anteriorly, Veress needle was then placed through the peritoneum. Abdominal cavity was insufflated with CO2. Pneumoperitoneum was established without difficulty. After creating pneumoperitoneum, an 11 mm trocar was placed under visualization into pneumoperitoneum. Looking inferiorly, there is omental adhesion to the wall from prior surgery. The area where the 11 mm trocar was put in is above the area of the adhesions into the free abdominal cavity. Three 5 mm trocars were placed in the right upper quadrant. Gallbladder was identified, gallbladder was lifted cephalad and there is moderate distention of the gallbladder. There is fair amount of adhesion to the surface of the gallbladder. Adhesions were taken down. The duodenum was adhesed with filmy adhesion to the same area and when the adhesions were taken down, the duodenum was away from the gallbladder. Second grasper placed in the proximal part of the gallbladder. Peritoneum was dissected free laterally. Dissection was then carried out medially where there [address] [address] OPERATIVE REPORT Name: JERRY PRITCHETT Enrique Room #: 437-P [facility]#: [id number] Admission: 10/09/20 Attend Phys: Robert Brunner MD Discharge: Date of : 49 Report #: [id number] is fair amount of fat. Fat was divided. Cystic duct and cystic artery was isolated. I can even see the cystic artery divided into the normal branch and then a second branch going more posterolaterally. The cystic duct was isolated. Clip was placed in junction of cystic duct to the gallbladder. Where the gallbladder joined the cystic duct, there is torsion in this area. An opening was made in the cystic duct. Cholangiogram catheter was placed. Fluoroscopic cholangiogram was obtained. Common bile duct filled out well, I did not see any filling defect. Dye flowed in the duodenum. The cholangiogram catheter was identified in the cystic duct, no harm to the common duct was seen. Catheter was then removed. The proximal cystic duct was clipped x 2 and then divided. The artery were isolated. The more medial branch was clipped x 2 proximally and 1 distally and then divided. The more lateral branch was then isolated, clipped x 2 proximally and 1 distally and then divided. Gallbladder was free from the liver bed. The gallbladder was divided off without difficulty. There is some raw liver that was found laterally where the plane was difficult to obtain. There is a little bit of blood that was from a tear where the falciform ligament joined up to the liver and the dissecting trocar pushed down on it and caused a small tear there. This was not bleeding. Gallbladder was removed through the cutdown 11 mm trocar site without difficulty. The bile suctioned out. The gallbladder was then removed. There were two small stones found in the gallbladder. Liver bed was checked, hemostasis was obtained. Surgicel was placed over the raw area of the liver bed and also where the falciform attached to the liver. No bleeding was identified. Trocars were removed. CO2 was evacuated. The fascia defect was closed with [id number] 0 Vicryl x 2. Skin was irrigated. Skin was closed with 5-0 PDS. Steri-Strip, Band-Aids applied. The patient tolerated the procedure well. By: 1142 [id number] Robert Brunner MD /nt
[2020-10-09 09:53] LABS: HEMATOCRIT 42.8 % (37.0-47.0); HEMOGLOBIN 13.9 gm/dL (12.0-15.0)
[2020-10-09 11:02] VITALS: BP 133/69
[2020-10-09 15:42] VITALS: BP 133/53
[2020-10-09] MEDS ORDERED: GLIPIZIDE5 MG PO (15:50)
[2020-10-09 16:39] VITALS: BP 133/53
--- NOTE | 2020-10-09 16:51 | NUR ---
Assumed pt care from PACU. Pt is alert & oriented x4. Pt had lap silvia with 4 incision today. Pt is up ad javier. Pt is on O2 @ 2L/min. Pt has L Upper arm 20 gauge running 1/2 NS KCL 20 meq @ 80 ml/hr. Accucheck achs. Pt on the bed. bed on the lowest postion, side rails up x2, call light within reach. Will continue to monitor. Follow POC.
[2020-10-09 17:25] VITALS: BP 124/58
[2020-10-09 19:52] VITALS: BP 129/56
--- NOTE | 2020-10-09 21:25 | NUR ---
ASSESSED AT START OF SHIFT, PT A&OX4 DENIES PAIN N/V ON ASSESSMENT. IV INTACT AND FLUIDS INFUSING. PT REQUESTED FOR XANAX. MEDICATION GIVE. BLOOD SUGAR CHECKED AND GLIPIZIDE GIVEN. PT UP X1 TO BSC. WALKS WITH A CANE. FALL PREC IN PLACE AND CALL LIGHT AT REACH.
[2020-10-10 07:05] VITALS: BP 124/59
--- NOTE | 2020-10-10 08:10 | NUR ---
ASSESSMENT: CM REVIEWED CHART AND SPOKE WITH PATIENT. PT IS ALERT AND ORIENTED X4. PT IS S/P LAP NANCY. PT REPORTS THAT SHE LIVES IN A HOUSE ALONE. PT STATES SHE HAS ABOUT 3 STEPS WITH A HANDRAIL TO ENTER AND NO STEPS ONCE INSIDE. PT REPORTS THAT SHE HAS A CANE TO HELP ASSIST WITH AMBULATION OUTSIDE THE HOME AND HAS A WALKER TO ASSIST FOR LONG DISTANCES IF NEEDED. PT REPORTS HER SON INSTALLED A GRAB BAR FOR HER AND SHE HAS A SHOWER CHAIR. PT REPORTS HX OF [facility] IN THE PAST. CM DISCUSSED ROLE. PT DOES NOT ANTICIPATE HAVING ANY NEEDS FROM CM AT DISCHARGE. CM WILL CONTINUE TO FOLLOW TO ASSIST NEEDED.
--- NOTE | 2020-10-10 11:57 | NUR ---
PT CARE ASSUMED AT 0700. A&Ox4. WALKING WITH MINIMAL PAIN IN THE HALLS. FOUR LAPSITES WITH BANDAIDS DRY AND INTACT. IV PATENT WITH NO REDNESS OR EDEMA, FLUIDS INFUSING. ACHS WITH NO COVERAGE NEEDED, ON GLIPIZIDE. SCD'S IN PLACE. CALL LIGHT IN REACH. DISCHARGED WITH NO FURTHER QUESTIONS FROM PT.
[2020-10-10] MEDS ORDERED: PERCOCET 5-3251 EACH PO (12:10)
[2020-10-10 12:16] VITALS: BP 124/59
--- NOTE | 2020-10-14 18:06 | PATH ---
[facility] [place] [address] PATHOLOGY RPT PROCEDURE Name: JERRY PRITCHETT Enrique Room #: 437-P [facility]#: [id number] Admission: 10/09/20 Date of : 49 Discharge: 10/10/20 Report #: [id number] Path Case #: [id number] [facility] Accession Number: [id number] . 01 Material submitted: . gallbladder - GALLBLADDER . 01 Clinical history: . LAPAROSCOPIC CHOLECYSTECTOMY WITH G CHOLECYSTITIS . 02 Diagnosis: Gallbladder, cholecystectomy: - Mild chronic cholecystitis. - Cholelithiasis. - Cholesterolosis. . (IUV:mml; 10/14/2020) QL 10/14/2020 [facility]6 Local . 02 Electronically signed: . Janeth Ferrell MD, Pathologist NPI- [id number] . 01 Gross description: . 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 [place]11[place] [facility] 10/11/2020 1437 Local . 02 Pathologist provided ICD-10: K80.10, K82.4 . 02 CPT . 464700 Specimen Comment: A courtesy copy of this report has been sent to [phone], [phone] [address] PATHOLOGY RPT PROCEDURE Name: JERRY PRITCHETT Room #: 437-P [facility] Shayy Lemus#: [id number] Admission: 10/09/20 Date of : 49 Discharge: 10/10/20 Report #: [id number] Path Case #: [id number] Specimen Comment: [id number] Specimen Comment: Report sent to / DR WOODARD Performed at: 01 [facility] Sharon Leonardo [address], [place], [place] [id number] MD John Odell MD Phone: [phone] Performed at: [address] [id number] MD Janeth Ferrell MD Phone: [phone]
== END 2020-10-10 13:24 | disposition home or self-care (01) ==
LOC: OR 09:14 → EDSTATUS 13:47 → 4S 14:26
PROVIDERS: ADMIT Surgery; ATTEND Surgery
DX: K80.10 Calculus of gallbladder with chronic cholecystitis without obstruction (principal); E11.9 Type 2 diabetes mellitus without complications; J96.01 Acute respiratory failure with hypoxia; Z79.84 Long term (current) use of oral hypoglycemic drugs; Z79.899 Other long term (current) drug therapy
CPT/HCPCS: 50010; 50101; 50411; 50555; 50558; 51489; 52265; 53307; 53310; 55245; 55317; 56462; 56525; 56526; 58574; 62110; 62900; 70005

== ENCOUNTER → 2021-01-09 | Outpatient (CLI) | payer OTHER, MEDICARE ==
[~2021-01-09] MED LIST changes: +GLIPIZIDE5 MG PO; +PERCOCET 5-3251 EACH PO
== END ==
LOC: SJCVC 13:25
PROVIDERS: ATTEND Internal Medicine
DX: I10 Essential (primary) hypertension (principal); J96.11 Chronic respiratory failure with hypoxia; E78.5 Hyperlipidemia, unspecified; E11.9 Type 2 diabetes mellitus without complications; J44.9 Chronic obstructive pulmonary disease, unspecified; M48.061 Spinal stenosis, lumbar region without neurogenic claudication; I82.413 Acute embolism and thrombosis of femoral vein, bilateral; M81.0 Age-related osteoporosis without current pathological fracture; Z90.49 Acquired absence of other specified parts of digestive tract; Z88.8 Allergy status to other drugs, medicaments and biological substances; Z79.899 Other long term (current) drug therapy; Z87.891 Personal history of nicotine dependence; Z82.49 Family history of ischemic heart disease and other diseases of the circulatory system

== ENCOUNTER → 2021-05-11 | Outpatient (CLI) | payer OTHER, MEDICARE ==
[~2021-05-11] VITALS: Ht 160 cm; Wt 110.0 kg
[~2021-05-11] MED LIST changes: +VITAMIN C500 M2 PO; +VITAMIN D310 MCG PO; +ZINC50 M1 PO
[2021-05-11 12:52] VITALS: BP 143/66
== END ==
LOC: PAIN 09:21
PROVIDERS: ATTEND Anesthesiology Pain Medicine
DX: M51.17 Intervertebral disc disorders with radiculopathy, lumbosacral region (principal); Z79.899 Other long term (current) drug therapy; Z88.8 Allergy status to other drugs, medicaments and biological substances

== ENCOUNTER → 2021-05-18 | Outpatient (CLI) | payer OTHER, MEDICARE ==
[~2021-05-18] VITALS: Ht 160 cm; Wt 109.7 kg
[2021-05-18 13:07] VITALS: BP 136/82
[2021-05-18 13:12] VITALS: BP 124/59
--- NOTE | 2021-05-18 13:27 | NUR ---
Pain Clinic Assessment: 1. History of Osteoarthritis: SPINE RIGHT KNEE History of Rheumatoid Arthritis: Not Applicable 2. Height: 5 ft. 3 in. 160.0 cm. Weight: 241.8 lb. oz. 109.680 kg. Patient's BMI: 42.8 3. Vital Signs: BP: 124/59 Pulse: 101 Resp: 16 Temp: 02 Sat: 95 ECG Mon: 4. Pain Intensity: 6-9 STANDING 5. Fall Risk: Dizziness: N Needs help standing or walking: Y Fallen in the last 3 months: N Fall risk comments: 6. Patient on Blood Thinner: None 7. History of Hypertension: Y 8. Opioid Therapy greater than 6 weeks: Y Opiate Contract Signed: 10/23/18 9. Risk Assessment Tool Provided: LOW RISK 1 10. Functional Assessment Tool: 11. Recreational Drug Use: Never Drug Type: Tobacco Use: Former Smoker Tobacco Type: Amount or Packs/day: How Many Years: Alcohol Use: Yes Frequency: Special Occasions Quant: 2 TO 3X/YR
== END | disposition home or self-care (01) ==
LOC: PAIN 10:46
PROVIDERS: ATTEND Anesthesiology Pain Medicine
DX: M54.16 Radiculopathy, lumbar region (principal); G89.29 Other chronic pain; Z98.890 Other specified postprocedural states; Z79.899 Other long term (current) drug therapy; Z88.8 Allergy status to other drugs, medicaments and biological substances

== ENCOUNTER → 2021-07-14 | Outpatient (CLI) | payer OTHER, MEDICARE | LOC: SJCVC 13:02 | PROVIDERS: ATTEND Internal Medicine | DX: R00.0 Tachycardia, unspecified (principal); R94.31 Abnormal electrocardiogram [ECG] [EKG]; I10 Essential (primary) hypertension; J96.11 Chronic respiratory failure with hypoxia; E78.5 Hyperlipidemia, unspecified; E11.9 Type 2 diabetes mellitus without complications; J44.9 Chronic obstructive pulmonary disease, unspecified; M48.061 Spinal stenosis, lumbar region without neurogenic claudication; I82.413 Acute embolism and thrombosis of femoral vein, bilateral; F41.9 Anxiety disorder, unspecified; M81.0 Age-related osteoporosis without current pathological fracture; N39.0 Urinary tract infection, site not specified; Z79.899 Other long term (current) drug therapy; I34.0 Nonrheumatic mitral (valve) insufficiency; F17.210 Nicotine dependence, cigarettes, uncomplicated; Z88.8 Allergy status to other drugs, medicaments and biological substances ==

== ENCOUNTER → 2021-08-31 | Outpatient (CLI) | payer OTHER, MEDICARE ==
[~2021-08-31] VITALS: Ht 160 cm; Wt 110.5 kg
[2021-08-31 13:08] VITALS: BP 157/74
--- NOTE | 2021-08-31 13:15 | NUR ---
Pain Clinic Assessment: 1. History of Osteoarthritis: SPINE RIGHT KNEE History of Rheumatoid Arthritis: Not Applicable 2. Height: 5 ft. 3 in. 160.0 cm. Weight: 243.6 lb. oz. 110.496 kg. Patient's BMI: 43.2 3. Vital Signs: BP: 157/74 Pulse: 101 Resp: 16 Temp: 02 Sat: 90 ECG Mon: 4. Pain Intensity: 8 5. Fall Risk: Dizziness: N Needs help standing or walking: N Fallen in the last 3 months: N Fall risk comments: 6. Patient on Blood Thinner: None 7. History of Hypertension: Y 8. Opioid Therapy greater than 6 weeks: Y Opiate Contract Signed: 10/23/18 9. Risk Assessment Tool Provided: LOW RISK 1 10. Functional Assessment Tool: 11. Recreational Drug Use: Never Drug Type: Tobacco Use: Former Smoker Tobacco Type: Amount or Packs/day: How Many Years: Alcohol Use: No Frequency: Quant:
== END | disposition home or self-care (01) ==
LOC: PAIN 12:52
PROVIDERS: ATTEND Anesthesiology Pain Medicine
DX: M48.061 Spinal stenosis, lumbar region without neurogenic claudication (principal); M47.22 Other spondylosis with radiculopathy, cervical region; M41.86 Other forms of scoliosis, lumbar region; I10 Essential (primary) hypertension; Z98.890 Other specified postprocedural states; Z79.899 Other long term (current) drug therapy; Z87.891 Personal history of nicotine dependence; Z88.8 Allergy status to other drugs, medicaments and biological substances